=== PATIENT | female | born 1965 | race Caucasian/White ===

== ENCOUNTER 2018-07-29 12:25 | Inpatient (IN) ==
--- NOTE | 2018-07-29 13:57 | ED ---
HPI General Chief complaint: Fever Stated complaint: fever Time Seen by Provider: 07/29/18 13:38 History of Present Illness HPI narrative: 53-year-old female presents to the emergency department for evaluation of fever and right arm pain. The patient states that 2 months ago she sustained a cat bite to her right hand second finger distal tip. States that she was seen same day at [facility] and treated with oral antibiotics, she is unsure which antibiotic, states that she took all except the last 2 days. States that the wound on the distal tip of her finger took about 1 month to heal completely. States that one month ago she started having a wound to the ulnar aspect of her left hand at the base of her little finger. States that this became swollen and had purulence that drained from it, states it has improved since then however has not resolved. States that she has had pain and mild swelling in the right axilla for the past 2 weeks. States that today when she got up she is having pain radiating from her right hand up her arm into her axilla. States that she also notices she has some red streaking running up her arm today. Patient states that she has had fevers daily for the past 10 days. States that her fevers have ranged from 102 F to 104 F. States that her fevers have mostly been at night. States she did have one last night that was 103.9 F at 2 AM and she took an Deja[place] cold and flu. She states that she has also had flulike symptoms over the past 7-10 days with slight cough, nausea, vomiting. States she was seen at an urgent care last week and had blood work which was unremarkable with the exception of a TSH of 16. Denies , she is status post tubal ligation. Patient does not have a PCP. No other complaints. Related Data Home Medications Medication Instructions Recorded Confirmed No Known Home Medications 07/29/18 07/29/18 Allergies Allergy/AdvReac Type Severity Reaction Status Date / Time Penicillins Allergy Unknown Rash Verified 07/29/18 13:54 Review of Systems ROS: all other systems reviewed are negative [facility] Medical History Medical History Medical history unknown (Acute) Surgical History Surgical History History of tubal ligation (Acute) Social History Social History Substance History: No History of Abuse Second Hand Smoke Exposure: Yes Smoking Status: Light tobacco smoker Tobacco Type: Cigarettes How Often Do You Have a Drink Containing Alcohol: 2 to 4 times a month Recent Travel in [facility] within the Last 8 Weeks: No Recent Out of Country Travel within the Last 8 Weeks: No Exam Narrative Exam Narrative: GENERAL: Well-nourished and well-developed pleasant patient in no acute distress who is nontoxic appearing. SKIN: Warm and dry. HEAD: Normocephalic and atraumatic. EYES: No injection, drainage, or hyphema noted. PERRLA. EOMI. ENT: No nasal drainage noted. Oropharynx is clear and the TMs are normal with good landmarks. NECK: Supple and the trachea is midline. CARDIOVASCULAR: Regular rate and rhythm. RESPIRATORY: Breath sounds are equal bilaterally with no accessory muscle use, wheezing, rhonchi, or crackles. GASTROINTESTINAL: Abdomen is soft, non-tender, and nondistended. MUSCULOSKELETAL: There is a 2 cm scaling healing wound to ulnar right hand, no fluctuance, no discharge or drainage. There is lymphangitis extending from the right forearm to right upper arm. Patient has axillary lymphadenopathy and tenderness. No obvious deformities, swelling, cyanosis, or ecchymosis is present throughout the upper and lower extremities. Patient has full range of motion without any signs of neurovascular compromise. Distal pulses are 2+ throughout. NEUROLOGICAL: Awake, alert, and oriented. Normal speech and gait. Cranial nerves are grossly intact. Course Initial Documented Vital Signs Temperature 98.0 F 07/29/18 12:29 Pulse Rate 95 H 07/29/18 12:29 Respiratory Rate 18 07/29/18 12:29 Blood Pressure 127/72 07/29/18 12:29 Pulse Oximetry 99 07/29/18 12:29 Last Documented Vital Signs Temperature 99.4 F 07/29/18 16:45 Pulse Rate 100 H 07/29/18 16:45 Respiratory Rate 17 07/29/18 16:45 Blood Pressure 138/88 07/29/18 16:45 Pulse Oximetry 100 07/29/18 16:45 Medical Decision Making MDM Narrative Medical decision making narrative: 53-year-old female presents to the emergency department for evaluation of fever and right arm pain. Patient is afebrile here in the emergency department. She is slightly tachycardic with a heart rate of 95 bpm. Otherwise vital signs within normal limits. On physical examination the patient has a wound to her right ulnar hand and lymphangitis of the right arm. IV access is obtained, labs of been drawn and sent. Patient is placed on cardiac telemetry and pulse oximetry monitoring. Patient is administered IV fluids, 1 g vancomycin IV and clindamycin 600 mg IV. CBC shows mild anemia but is otherwise unremarkable. Sed rate is significantly elevated at 140. CRP is elevated to 18. Lactic acid is slightly elevated at 2.1. CMP shows hypokalemia with potassium of 3.2, otherwise unremarkable for any acute findings. TSH is elevated at 7.910. Urinalysis shows small occult blood but is otherwise unremarkable. X-ray of the right hand shows soft tissue swelling but is otherwise unremarkable. Chest x-ray shows left lower lobe subsegmental atelectasis although minimal infiltrate cannot be excluded. Swab is negative. Patient has been administered vancomycin and clindamycin IV for cellulitis and lymphangitis. Since cat scratch disease is also in the differential patient also given Zithromax 500 mg IV. Chest x-ray showing pneumonia, covered with IV antibiotics previously listed. Patient will be admitted for IV antibiotics and to follow blood cultures. Dr. Urbano [place] agrees to admit to his service. Medical Screen Exam Complete: Yes Emergency Medical Condition: Yes Differential Diagnosis Differential Diagnosis: Sepsis versus bacteremia versus influenza versus cellulitis versus cat scratch disease Lab Data Result diagrams: 07/29/18 14:25 07/29/18 14:25 Lab Results 07/29/18 07/29/18 07/29/18 Range/Units 14:25 14:25 14:25 WBC 6.4 (4.0-11.0) th/mm3 RBC 3.73 L (4.00-5.30) mil/mm3 Hgb 11.1 L (11.6-15.3) gm/dL Hct 32.1 L (35.0-46.0) % MCV 86.1 (80.0-100.0) fL MCH 29.8 (27.0-34.0) pg MCHC 34.7 (32.0-36.0) % RDW 14.3 (11.6-17.2) % Plt Count 377 (150-450) th/mm3 MPV 8.3 (7.0-11.0) fL Prelim Diff (Auto) Slide review pending Neut % (Auto) 68.6 (16.0-70.0) % Lymph % (Auto) 20.1 (9.0-44.0) % [place] % (Auto) 9.5 H (0.0-8.0) % Eos % (Auto) 1.5 (0.0-4.0) % Baso % (Auto) 0.3 (0.0-2.0) % Neut # (Auto) 4.4 (1.8-7.7) th/mm3 Lymph # (Auto) 1.3 (1.0-4.8) th/mm3 [place] # (Auto) 0.6 (0.0-0.9) th/mm3 Eos # (Auto) 0.1 (0.0-0.4) th/mm3 Baso # (Auto) 0.0 (0.0-0.2) th/mm3 WBC Differential . Diff Scan Auto diff confirmed Differential Comment . Platelet Estimate Normal (Normal) Platelet Morphology Normal (Normal) ESR (0-30) mm/hr Sodium 136 (136-145) meq/L Potassium 3.2 L (3.5-5.1) meq/L Chloride 97 L (98-107) meq/L Carbon Dioxide 32.8 H (21.0-32.0) meq/L Anion Gap 6 (5-15) meq/L BUN 5 L (7-18) mg/dL Creatinine 0.77 (0.50-1.00) mg/dL Estimated GFR 79 L (>89) mL/min Random Glucose 93 (74-106) mg/dL Lactic Acid 2.1 H (0.4-2.0) mmol/L Calcium 8.3 L (8.5-10.1) mg/dL Magnesium 2.2 (1.5-2.5) mg/dL Total Bilirubin 0.3 (0.2-1.0) mg/dL AST 27 (15-37) U/L ALT 34 (10-53) U/L Alkaline Phosphatase 200 H (45-117) U/L C-Reactive Protein 18.00 H (0.00-0.30) mg/dL Total Protein 8.9 H (6.4-8.2) g/dL Albumin 2.4 L (3.4-5.0) g/dL Lipase 182 (73-393) U/L TSH 7.910 H (0.358-3.740) uIU/mL Urine Color (Yellw/Straw) Urine Clarity (Clear) Urine pH (5.0-8.5) Ur Specific [place] (1.002-1.035) Urine Protein (Neg-Trace) mg/dL Urine Glucose (UA) (Negative) mg/dL Urine Ketones (Negative) mg/dL Urine Occult Blood (Negative) Urine Nitrate (Negative) Urine Bilirubin (Negative) Urine Urobilinogen (Less than 2) mg/dL Ur Leukocyte Esterase (Negative) Urine WBC (0-5) /hpf Micro UA Comment Ur Microscopic Review Urine Culture Comments 07/29/18 07/29/18 Range/Units 14:25 14:39 WBC (4.0-11.0) th/mm3 RBC (4.00-5.30) mil/mm3 Hgb (11.6-15.3) gm/dL Hct (35.0-46.0) % MCV (80.0-100.0) fL MCH (27.0-34.0) pg MCHC (32.0-36.0) % RDW (11.6-17.2) % Plt Count (150-450) th/mm3 MPV (7.0-11.0) fL Prelim Diff (Auto) Neut % (Auto) (16.0-70.0) % Lymph % (Auto) (9.0-44.0) % [place] % (Auto) (0.0-8.0) % Eos % (Auto) (0.0-4.0) % Baso % (Auto) (0.0-2.0) % Neut # (Auto) (1.8-7.7) th/mm3 Lymph # (Auto) (1.0-4.8) th/mm3 [place] # (Auto) (0.0-0.9) th/mm3 Eos # (Auto) (0.0-0.4) th/mm3 Baso # (Auto) (0.0-0.2) th/mm3 WBC Differential Diff Scan Differential Comment Platelet Estimate (Normal) Platelet Morphology (Normal) ESR Greater than 140 H (0-30) mm/hr Sodium (136-145) meq/L Potassium (3.5-5.1) meq/L Chloride (98-107) meq/L Carbon Dioxide (21.0-32.0) meq/L Anion Gap (5-15) meq/L BUN (7-18) mg/dL Creatinine (0.50-1.00) mg/dL Estimated GFR (>89) mL/min Random Glucose (74-106) mg/dL Lactic Acid (0.4-2.0) mmol/L Calcium (8.5-10.1) mg/dL Magnesium (1.5-2.5) mg/dL Total Bilirubin (0.2-1.0) mg/dL AST (15-37) U/L ALT (10-53) U/L Alkaline Phosphatase (45-117) U/L C-Reactive Protein (0.00-0.30) mg/dL Total Protein (6.4-8.2) g/dL Albumin (3.4-5.0) g/dL Lipase (73-393) U/L TSH (0.358-3.740) uIU/mL Urine Color Straw (Yellw/Straw) Urine Clarity Clear (Clear) Urine pH 7.0 (5.0-8.5) Ur Specific [place] 1.001 L (1.002-1.035) Urine Protein Negative (Neg-Trace) mg/dL Urine Glucose (UA) Negative (Negative) mg/dL Urine Ketones Negative (Negative) mg/dL Urine Occult Blood Small H (Negative) Urine Nitrate Negative (Negative) Urine Bilirubin Negative (Negative) Urine Urobilinogen Less than 2 (Less than 2) mg/dL Ur Leukocyte Esterase Negative (Negative) Urine WBC Less than 1 (0-5) /hpf Micro UA Comment Culture not ind Ur Microscopic Review Not Reportable Urine Culture Comments Culture not ind Imaging Data Radiologist's impression: Chest X-Ray 07/29/18 13:55 CONCLUSION: Minimal linear density left lower lobe likely subsegmental atelectasis although minimal infiltrate cannot be excluded. Hand X-Ray 07/29/18 14:04 CONCLUSION: Soft tissue swelling without evidence of radiopaque foreign body. Discharge Plan Discharge Disposition Patient Disposition: 30 Still Patient Discharge Details Diagnosis: Infection of hand, Community acquired pneumonia, Acute lymphangitis Physicians Team ED Provider: Angus Carmona ED Midlevel Provider: Jennifer Baird Primary Care Provider: Primary Care Yaz King Rxs /Orders / Referrals /Forms Prescriptions: No Action No Known Home Medications RF: 0 Status ED Status: With Doctor
[2018-07-29] MEDS ORDERED: Sod Chloride 0.9% Inj 1,000 ML IV.SIG SCH (14:00)
[2018-07-29] MEDS ORDERED: Clindamycin 600 mg/NS Premix 600 MG/50 ML PIGGYBACK IV.SIG ONE (14:02)
[2018-07-29] MEDS ORDERED: Vancomycin Inj 1,000 MG in Sodium Chlor 0.9% Inj 250 ML IV.SIG ONE (14:02)
--- NOTE | 2018-07-29 14:28 | XR ---
EXAM DATE: 07/29/2018 2:21 PM EST AGE/SEX: 53 years / Female INDICATIONS: Foreign body. Patient was bite by a cat 2 months ago. Continued pain. CLINICAL DATA: This is the patient's initial encounter. Patient reports that signs and symptoms have been present for 2 months and indicates a pain score of 8/10. MEDICAL/SURGICAL HISTORY: None. None. COMPARISON: No prior exams available for comparison. FINDINGS: Bony structures are intact and in normal alignment. Osseous density is normal. Soft tissue swelling i s seen along the lateral aspect of the right hand adjacent to the fifth metacarpal.. No radiopaque f oreign bodies seen. CONCLUSION: Soft tissue swelling without evidence of radiopaque foreign body. Electronically signed by: Gil Alcantara MD 07/29/2018 2:26 PM EST
--- NOTE | 2018-07-29 14:31 | XR ---
EXAM DATE: 07/29/2018 2:09 PM EST AGE/SEX: 53 years / Female INDICATIONS: Fever. CLINICAL DATA: This is the patient's initial encounter. Patient reports that signs and symptoms have been present for 2 weeks and indicates a pain score of 0/10. MEDICAL/SURGICAL HISTORY: None. None. COMPARISON: No prior exams available for comparison. FINDINGS: A single AP view of the chest demonstrates minimal linear density left lower lobe without evidence of mass, infiltrate or effusion. The cardiomediastinal contours are unremarkable. Osseous structures are intact. CONCLUSION: Minimal linear density left lower lobe likely subsegmental atelectasis although minimal infiltrate ca nnot be excluded. Electronically signed by: Aydin Burton MD 07/29/2018 2:30 PM EST
[2018-07-29 14:59] LABS: Baso % (Auto) 0.3 % (0.0-2.0); Eos # (Auto) 0.1 th/mm3 (0.0-0.4); Eos % (Auto) 1.5 % (0.0-4.0); Hematocrit 32.1 % (35.0-46.0); Hemoglobin 11.1 gm/dL (11.6-15.3); Lymph # (Auto) 1.3 th/mm3 (1.0-4.8); Lymph % (Auto) 20.1 % (9.0-44.0); Mean Corpuscular HGB Conc 34.7 % (32.0-36.0); Mean Corpuscular Hemoglobin 29.8 pg (27.0-34.0); Mean Corpuscular Volume 86.1 fL (80.0-100.0); Mean Platelet Volume 8.3 fL (7.0-11.0); Mono # (Auto) 0.6 th/mm3 (0.0-0.9); Mono % (Auto) 9.5 % (0.0-8.0); Neut # (Auto) 4.4 th/mm3 (1.8-7.7); Neut % (Auto) 68.6 % (16.0-70.0); Platelet Count 377 th/mm3 (150-450); Red Blood Count 3.73 mil/mm3 (4.00-5.30); Red Cell Distribution Width 14.3 % (11.6-17.2); White Blood Count 6.4 th/mm3 (4.0-11.0)
[2018-07-29 15:17] LABS: Alanine Aminotransferase 34 U/L (10-53); Albumin 2.4 g/dL (3.4-5.0); Anion Gap 6 meq/L (5-15); Aspartate Aminotransferase 27 U/L (15-37); Blood Urea Nitrogen 5 mg/dL (7-18); Calcium 8.3 mg/dL (8.5-10.1); Carbon Dioxide 32.8 meq/L (21.0-32.0); Chloride 97 meq/L (98-107); Glomerular Filtration Rate 79 mL/min (>89); Glucose,Random 93 mg/dL (74-106); Lipase 182 U/L (73-393); Magnesium 2.2 mg/dL (1.5-2.5); Potassium 3.2 meq/L (3.5-5.1); Sodium 136 meq/L (136-145)
[2018-07-29] MEDS ORDERED: Azithromycin Inj 500 MG in Sodium Chlor 0.9% Inj 250 ML IV.SIG ONE (15:23)
[2018-07-29 15:25] LABS: Alkaline Phosphatase 200 U/L (45-117); Total Protein 8.9 g/dL (6.4-8.2)
[2018-07-29 15:39] LABS: Bilirubin,Urine Negative (Negative); Clarity,Urine Clear (Clear); Color,Urine Straw (Yellw/Straw); Glucose,Urine (UA) Negative (Negative); Leukocyte Esterase,Urine Negative (Negative); Nitrite,Urine Negative (Negative); Specific Gravity,Urine 1.001 (1.002-1.035)
[2018-07-29 15:48] LABS: Platelet Estimate Normal (Normal); Platelet Morphology Normal (Normal)
[2018-07-29] MEDS ORDERED: Bisacodyl 10 MG Supp RECTAL PRN (16:10)
[2018-07-29] MEDS ORDERED: Vancomycin Consult Pharmacy OTHER PRN (16:14)
--- NOTE | 2018-07-29 16:14 | P.HP ---
History of Present Illness Primary Care Physician: No Primary Care Physician Chief Complaint: Fever History of Present Illness: This is a pleasant 53 y/o Female who came to Emergency Room for evaluation of fever and right arm pain. The patient states that 2 months ago she sustained a cat bite to her right hand second finger distal tip. States that she was seen same day at [facility] and treated with oral antibiotics, she is unsure which antibiotic, states that she took all except the last 2 days. States that the wound on the distal tip of her finger took about 1 month to heal completely. States that one month ago she started having a wound to the ulnar aspect of her left hand at the base of her little finger. States that this became swollen and had purulence that drained from it, states it has improved since then however has not resolved. States that she has had pain and mild swelling in the right axilla for the past 2 weeks. States that today when she got up she is having pain radiating from her right hand up her arm into her axilla. States that she also notices she has some red streaking running up her arm today. Patient states that she has had fevers daily for the past 10 days. States that her fevers have ranged from 102 F to 104 F. States that her fevers have mostly been at night. States she did have one last night that was 103.9 F at 2 AM and she took an Deja-[place] cold and flu. She states that she has also had flulike symptoms over the past 7-10 days with slight cough, nausea, vomiting. States she was seen at an urgent care last week and had blood work which was unremarkable with the exception of a TSH of 16. Denies , she is status post tubal ligation. stable in he bedroom in Emergency room, no nausea, vomit or diarrhea. Review of Systems All other systems reviewed negative except as stated in HPI PMFSH - History History Provided By: Patient - Medical History Medical History: Medical History (Last Updated 07/29/18 @ 17:11 by Sundeep Pate MD) Hypothyroidism - Surgical History Surgical History: Surgical History (Last Updated 07/29/18 @ 14:20 by Vamsi Diego) History of tubal ligation - Family History Family History: Family History (Last Updated 07/29/18 @ 17:11 by Sundeep Pate MD) Father Family history of hypertension - Tobacco History Second Hand Smoke Exposure: Yes Tobacco Use In Past 30 Days: Yes Smoking Status: Light tobacco smoker Tobacco Type: Cigarettes - Alcohol History How Often Do You Have a Drink Containing Alcohol: 2 to 4 times a month - Substance Use History Substance History: No History of Abuse - Travel History Recent Travel in the [place] Within the Last 8 Weeks: No Recent Travel Out of the Country Within the Last 8 Weeks: No - Immunization History Tetanus Immunization: >5 Years Medications and Allergies Active Medications: Active Medications Azithromycin 500 mg/ Sodium (Chloride) 250 mls @ 250 mls/hr IV.SIG ONCE ONE Stop: 07/29/18 16:22 Last Admin: 07/29/18 15:47 Dose: 250 mls/hr Allergies Allergy/AdvReac Type Severity Reaction Status Date / Time Penicillins Allergy Unknown Rash Verified 07/29/18 13:54 Home Medications Medication Instructions Recorded Confirmed Type No Known Home Medications 07/29/18 07/29/18 History Exam Vital signs: Vital Signs 07/29/18 12:29 07/29/18 14:25 07/29/18 14:26 Temperature 98.0 F Pulse Rate 95 H 95 H 96 H Respiratory Rate 18 18 Blood Pressure 127/72 130/72 Pulse Oximetry 99 100 99 Intake & Output 07/28/18 07/29/18 07/29/18 18:59 06:59 18:59 Intake Total 50 / 50 Balance 50 / 50 Weight 73.482 kg Intake: IV 50 / 50 Cleocin 600 mg/NS Premix 600 mg 50 / 50 In 50 ml @ 100 mls/hr IV.SIG ONCE ONE Rx#:[id number] Narrative: GENERAL: Well-nourished and well-developed pleasant patient in no acute distress who is nontoxic appearing. SKIN: Warm and dry. HEAD: Normocephalic and atraumatic. EYES: No injection, drainage, or hyphema noted. PERRLA. EOMI. ENT: No nasal drainage noted. Oropharynx is clear and the TMs are normal with good landmarks. NECK: Supple and the trachea is midline. CARDIOVASCULAR: Regular rate and rhythm. RESPIRATORY: Breath sounds are equal bilaterally with no accessory muscle use, wheezing, rhonchi, or crackles. GASTROINTESTINAL: Abdomen is soft, non-tender, and nondistended. MUSCULOSKELETAL: There is a 2 cm scaling healing wound to ulnar right hand, no fluctuance, no discharge or drainage. There is lymphangitis extending from the right forearm to right upper arm. Patient has axillary lymphadenopathy and tenderness. No obvious deformities, swelling, cyanosis, or ecchymosis is present throughout the upper and lower extremities. Patient has full range of motion without any signs of neurovascular compromise. Distal pulses are 2+ throughout. NEUROLOGICAL: Awake, alert, and oriented. Normal speech and gait. Cranial nerves are grossly intact. Results - Labs CBC & Chem 7: 07/29/18 14:25 07/29/18 14:25 Labs: Laboratory Results - last 24 hr 07/29/18 07/29/18 07/29/18 14:25 14:25 14:25 WBC 6.4 RBC 3.73 L Hgb 11.1 L Hct 32.1 L MCV 86.1 MCH 29.8 MCHC 34.7 RDW 14.3 Plt Count 377 MPV 8.3 Prelim Diff (Auto) Slide review pending Neut % (Auto) 68.6 Lymph % (Auto) 20.1 [place] % (Auto) 9.5 H Eos % (Auto) 1.5 Baso % (Auto) 0.3 Neut # (Auto) 4.4 Lymph # (Auto) 1.3 [place] # (Auto) 0.6 Eos # (Auto) 0.1 Baso # (Auto) 0.0 WBC Differential . Diff Scan Auto diff confirmed Differential Comment . Platelet Estimate Normal Platelet Morphology Normal ESR Sodium 136 Potassium 3.2 L Chloride 97 L Carbon Dioxide 32.8 H Anion Gap 6 BUN 5 L Creatinine 0.77 Estimated GFR 79 L Random Glucose 93 Lactic Acid 2.1 H Calcium 8.3 L Magnesium 2.2 Total Bilirubin 0.3 AST 27 ALT 34 Alkaline Phosphatase 200 H C-Reactive Protein 18.00 H Total Protein 8.9 H Albumin 2.4 L Lipase 182 TSH 7.910 H Urine Color Urine Clarity Urine pH Ur Specific [place] Urine Protein Urine Glucose (UA) Urine Ketones Urine Occult Blood Urine Nitrate Urine Bilirubin Urine Urobilinogen Ur Leukocyte Esterase Urine WBC Micro UA Comment Ur Microscopic Review Urine Culture Comments 07/29/18 07/29/18 14:25 14:39 WBC RBC Hgb Hct MCV MCH MCHC RDW Plt Count MPV Prelim Diff (Auto) Neut % (Auto) Lymph % (Auto) [place] % (Auto) Eos % (Auto) Baso % (Auto) Neut # (Auto) Lymph # (Auto) [place] # (Auto) Eos # (Auto) Baso # (Auto) WBC Differential Diff Scan Differential Comment Platelet Estimate Platelet Morphology ESR Greater than 140 H Sodium Potassium Chloride Carbon Dioxide Anion Gap BUN Creatinine Estimated GFR Random Glucose Lactic Acid Calcium Magnesium Total Bilirubin AST ALT Alkaline Phosphatase C-Reactive Protein Total Protein Albumin Lipase TSH Urine Color Straw Urine Clarity Clear Urine pH 7.0 Ur Specific [place] 1.001 L Urine Protein Negative Urine Glucose (UA) Negative Urine Ketones Negative Urine Occult Blood Small H Urine Nitrate Negative Urine Bilirubin Negative Urine Urobilinogen Less than 2 Ur Leukocyte Esterase Negative Urine WBC Less than 1 Micro UA Comment Culture not ind Ur Microscopic Review Not Reportable Urine Culture Comments Culture not ind - Imaging Impressions Chest X-Ray 07/29/18 13:55 CONCLUSION: Minimal linear density left lower lobe likely subsegmental atelectasis although minimal infiltrate cannot be excluded. Hand X-Ray 07/29/18 14:04 CONCLUSION: Soft tissue swelling without evidence of radiopaque foreign body. Caprini VTE Risk Assessment Caprini VTE Risk Assessment: No/Low Risk (score <= 1) Caprini Risk Assessment Model: Point Value = 1 Point Value = 2 Point Value = 3 Point Value = 5 Age 41-60 Minor surgery BMI > 25 kg/m2 Swollen legs Varicose veins or History of unexplained or recurrent spontaneous Oral contraceptives or hormone replacement Sepsis (< 1 month) Serious lung disease, including pneumonia (< 1 month) Abnormal pulmonary function Acute myocardial infarction Congestive heart failure (< 1 month) History of inflammatory bowel disease Medical patient at bed rest Age 61-74 Arthroscopic surgery Major open surgery (> 45 min) Laparoscopic surgery (> 45 min) Malignancy Confined to bed (> 72 hours) Immobilizing plaster cast Central venous access Age >= 75 History of VTE Family history of VTE Factor V Leiden Prothrombin [id number] Lupus anticoagulant Anticardiolipin antibodies Elevated serum homocysteine Heparin-induced thrombocytopenia Other congenital or acquired thrombophilia Stroke (< 1 month) Elective arthroplasty Hip, pelvis, or leg fracture Acute spinal cord injury (< 1 month) Prophylaxis Regimen: Total Risk Factor Score Risk Level Prophylaxis Regimen 0-1 Low Early ambulation 2 Moderate Order ONE of the following: *Sequential Compression Device (SCD) *Heparin 5000 units SQ BID 3-4 Higher Order ONE of the following medications: *Heparin 5000 units SQ TID *Enoxaparin/Lovenox 40 mg SQ daily (WT < 150 kg, CrCl > 30 mL/min) *Enoxaparin/Lovenox 30 mg SQ daily (WT < 150 kg, CrCl > 10-29 mL/min) *Enoxaparin/Lovenox 30 mg SQ BID (WT < 150 kg, CrCl > 30 mL/min) AND/OR *Sequential Compression Device (SCD) 5 or more Highest Order ONE of the following medications: *Heparin 5000 units SQ TID (Preferred with Epidurals) *Enoxaparin/Lovenox 40 mg SQ daily (WT < 150 kg, CrCl > 30 mL/min) *Enoxaparin/Lovenox 30 mg SQ daily (WT < 150 kg, CrCl > 10-29 mL/min) *Enoxaparin/Lovenox 30 mg SQ BID (WT < 150 kg, CrCl > 30 mL/min) AND *Sequential Compression Device (SCD) Assessment and Plan - Plan 1. Left hand Cellulitis status post Cellulitis and Lymphangitis, Sed rate elevated 140, CRP elevated 18 was started on IV fluids, her Lactic acid mildly elevated 2.1, has Hypokalemia replaced and following started on Vancomycin and Clindamycin 600 mg every 8 hours, discussed with ER physician Doctor Carmona and because the patient started with Cat bite probable Cat scratch disease is a possibility was started on Azithromycin 500 mg IV daily. X-ray of the right hand shows soft tissue swelling but is otherwise unremarkable. 2. Hypothyroidism was given Desiccated thyroid extract by her PCP, I don't have the dose will start Levothyroxine 50 mcg daily 3. CAP CXR showed left lower lobe subsegmental atelectasis. will continue present care. will add Bronchodilator, Mucolytic and incentive spirometry. 4. Hypokalemia replaced and following. 5. Tobacco dependence strongly recommended to stop smoking. DVT prophylaxis with Lovenox. Code Status: Full code. Discussed Condition With: Emergency Physician doctor Angus Carmona. Discharge Planning: Expected in one to two days.
[2018-07-29] MEDS: Acetaminophen 325 MG Tablet PO PRN (17:11)
[2018-07-29] MEDS: Levothyroxine 50 MCG Tablet PO SCH (18:03)
[2018-07-29] MEDS: Sod Chloride 0.9% Inj 1,000 ML IV.CONT SCH (18:16)
[2018-07-29] MEDS: Enoxaparin Inj 40 MG/0.4 ML Syringe SQ SCH (18:16)
--- NOTE | 2018-07-29 19:08 | ECG ---
Date Performed: 07/29/2018 Time Performed: 14:24:17 PTAGE: 53 years EKG: Sinus rhythm NORMAL ECG NO PREVIOUS TRACING DOCTOR: Km Osuna Interpretating Date/Time 07/29/2018 19:07:23
[2018-07-29] MEDS: guaiFENesin 600 MG ER Tablet PO SCH (21:13)
[2018-07-29] MEDS: Clindamycin 600 mg/NS Premix 600 MG/50 ML PIGGYBACK IV.SIG SCH (23:26)
[2018-07-30] MEDS ORDERED: Vancomycin Inj 1,000 MG in Sodium Chlor 0.9% Inj 250 ML IV.SIG SCH (05:00)
[2018-07-30] MEDS: Sod Chloride 0.9% Inj 1,000 ML IV.CONT SCH ×3 (05:11→22:17)
[2018-07-30] MEDS: Levothyroxine 50 MCG Tablet PO SCH (05:16)
[2018-07-30] MEDS: Clindamycin 600 mg/NS Premix 600 MG/50 ML PIGGYBACK IV.SIG SCH ×3 (06:24→22:12)
[2018-07-30 07:58] LABS: Baso % (Auto) 0.6 % (0.0-2.0); Eos # (Auto) 0.1 th/mm3 (0.0-0.4); Eos % (Auto) 1.2 % (0.0-4.0); Hematocrit 29.9 % (35.0-46.0); Hemoglobin 10.2 gm/dL (11.6-15.3); Lymph # (Auto) 1.6 th/mm3 (1.0-4.8); Lymph % (Auto) 24.5 % (9.0-44.0); Mean Corpuscular HGB Conc 34.3 % (32.0-36.0); Mean Corpuscular Hemoglobin 29.1 pg (27.0-34.0); Mean Corpuscular Volume 84.8 fL (80.0-100.0); Mean Platelet Volume 8.4 fL (7.0-11.0); Mono # (Auto) 0.6 th/mm3 (0.0-0.9); Mono % (Auto) 9.3 % (0.0-8.0); Neut # (Auto) 4.1 th/mm3 (1.8-7.7); Neut % (Auto) 64.4 % (16.0-70.0); Platelet Count 363 th/mm3 (150-450); Red Blood Count 3.53 mil/mm3 (4.00-5.30); Red Cell Distribution Width 14.1 % (11.6-17.2); White Blood Count 6.4 th/mm3 (4.0-11.0)
[2018-07-30] MEDS: guaiFENesin 600 MG ER Tablet PO SCH ×2 (08:30→22:14)
--- NOTE | 2018-07-30 13:16 | P.CONID ---
History of Present Illness Service: Infectious disease Consult date: 07/30/18 Requesting Physician: Eliezer Baird Reason for Consult: Evaluate patient with infection right upper extremity and fevers Primary Care Provider: No Primary Care Physician Chief Complaint: Fever History of Present Illness: Patient seen and examined. Records reviewed. Patient is a 53-year-old female, presented to the hospital for further evaluation of red streaks going up her right upper extremity. Patient stated she had a cat bite in her right index finger about 2 months ago. It was a young kitten and they foster pets. She apparently developed an infection on that finger. She went to [facility], and she was given Augmentin and she finished about 8 days of the treatment. The right index finger got better. About a month ago patient developed problem on the lateral aspect of her right hand and its towards the fifth MCP joint. It apparently became red and swollen and there was a white area that she had noticed and she tried draining it but nothing came out. She thought it might have been from the bottle washer machine holes that she was using. She was not sure if it was at all related to the cat bite that she had on her other finger. She did not seek any medical help, and it eventually got better. About 12 days ago patient started developing fevers and chills. She went to a walk-in clinic and she was told that it might just be the flu. She also started experiencing some pain and discomfort in her right armpit. The day prior to admission she noted red streaks going up her forearm and because of her other symptoms she decided to go to the hospital for further evaluation and treatment. During her visit in the walk-in clinic she had some blood work done and she was told that her TSH was elevated. She was apparently started on [place] Thyroid. She has not had any respiratory symptoms. Denies any sore throat or any swollen gland. Denies any joint pains. She has not had any skin rash. No nausea or vomiting. She has been constipated. Her p.o. intake has not been great. She denies any urinary complaints. Patient has 4 children at home who are in the teens to the early 20s and none of them are sick. The kitten that bit her apparently about 3 days after she sustained a bite. Since admission she has not had any fever. Highest temperature has been about 99+. Chest x-ray showing some left lower lobe atelectasis. X-ray of the hand shows some soft tissue swelling but no foreign body seen. Patient has received a azithromycin, vancomycin and clindamycin. She was noted to have some lymphangitic streaks in her right upper extremity, and according to the patient that has improved some. She complains of significant tenderness in her right armpit. Infectious disease consultation has been requested to assist with evaluation and treatment of patient with fevers. Review of Systems Constitutional: Reports chills, Reports fever(s), Reports night sweats, Reports weakness, Denies headache(s) Eyes: Reports blurry vision, Denies discharge, Denies dry eyes, Denies floaters , Denies pain Ears, Nose, Mouth, and Throat: Denies difficulty swallowing, Denies dizziness, Denies ear pain, Denies facial pain, Denies mouth pain, Denies nasal congestion , Denies nasal discharge, Denies pain with swallowing, Denies sore throat Cardiovascular: Denies chest pain, Denies shortness of breath Respiratory: Denies chest congestion, Denies cough, Denies shortness of breath Gastrointestinal: Reports constipation, Denies abdominal pain, Denies incontinent of stools, Denies loose stools, Denies nausea, Denies pain with swallowing, Denies vomiting Genitourinary: Denies difficulty urinating, Denies painful urination Musculoskeletal: Reports muscle weakness, Denies joint pain, Denies joint swelling Skin/Breast: Reports redness, Denies rash, Denies wounds Neurologic: Denies headache(s), Denies loss of vision PMFSH - History History Provided By: Patient - Medical History Medical History: Medical History (Last Reviewed 07/30/18 @ 13:52 by Naya Trevino MD) Hypothyroidism - Surgical History Surgical History: Surgical History (Last Reviewed 07/30/18 @ 13:52 by Naya Trevino MD) History of tubal ligation - Family History Family History: Family History (Last Reviewed 07/30/18 @ 13:52 by Naya Trevino MD) Father Family history of hypertension - Tobacco History Second Hand Smoke Exposure: Yes Tobacco Use In Past 30 Days: Yes Smoking Status: Light tobacco smoker Tobacco Type: Cigarettes - Alcohol History How Often Do You Have a Drink Containing Alcohol: 2 to 4 times a month - Substance Use History Substance History: No History of Abuse - Travel History Recent Travel in the [facility] [place] Within the Last 8 Weeks: No Recent Travel Out of the Country Within the Last 8 Weeks: No - Immunization History Tetanus Immunization: >5 Years Medications and Allergies Active Medications: Active Medications Acetaminophen (Tylenol) 650 mg PO Q4H PRN PRN Reason: Temp > 100.4 Last Admin: 07/29/18 17:11 Dose: 650 mg Al Hydroxide/Mg Hydroxide (Milk Of Magnesia Liq) 30 ml PO Q12H PRN PRN Reason: Mild Constipation Last Admin: 07/30/18 08:38 Dose: 30 ml Albuterol (Duoneb Neb (Prn)) 1 ampul NEB Q4HR NEB PRN PRN Reason: SHORTNESS OF BREATH Bisacodyl (Dulcolax Supp) 10 mg RECTAL DAILY PRN PRN Reason: SEVERE CONSITIPATION Enoxaparin Sodium (Lovenox Inj) 40 mg SQ Q24H [facility] Last Admin: 07/29/18 18:16 Dose: 40 mg Guaifenesin (Mucinex Er) 600 mg PO BID [facility] Last Admin: 07/30/18 08:30 Dose: 600 mg Sodium Chloride (Ns Inj) 1,000 mls @ 100 mls/hr IV.CONT .Q10H [facility] Last Admin: 07/30/18 05:11 Dose: 100 mls/hr Azithromycin 500 mg/ Sodium (Chloride) 250 mls @ 250 mls/hr IV.SIG Q24H [facility] Clindamycin/Sodium Chloride (Cleocin 600 Mg/Ns Premix) 600 mg in 50 mls @ 100 mls/hr IV.SIG Q8H [facility] Last Infusion: 07/30/18 06:54 Dose: Infused Vancomycin HCl 1,000 mg/ (Sodium Chloride) 250 mls @ 250 mls/hr IV.SIG Q12H [facility] Last Infusion: 07/30/18 06:13 Dose: Infused Lactulose (Lactulose Liq) 30 ml PO DAILY PRN PRN Reason: SEVERE CONSITIPATION Levothyroxine Sodium (Synthroid) 50 mcg PO DAILY@0600 [facility] Last Admin: 07/30/18 05:16 Dose: Not Given Miscellaneous Information ([facility] Ordered Lab Info) 0 each OTHER ONCE ONE Stop: 07/31/18 04:46 Ondansetron HCl (Zofran Inj) 4 mg IV.PUSH Q6H PRN PRN Reason: NAUSEA OR VOMITING Pharmacy Profile Note (Vancomycin Consult Pharmacy) 1 each OTHER UNSCH PRN PRN Reason: Pharmacy to dose Sennosides (Senokot) 17.2 mg PO Q12H PRN PRN Reason: Moderate Constipation Last Admin: 07/29/18 21:21 Dose: 17.2 mg Allergies Allergy/AdvReac Type Severity Reaction Status Date / Time Penicillins Allergy Unknown Rash Verified 07/29/18 13:54 Home Medications Medication Instructions Recorded Confirmed Type No Known Home Medications 07/29/18 07/29/18 History Exam Vital signs: Vital Signs 07/29/18 14:25 07/29/18 14:26 07/29/18 16:45 Temperature 99.4 F Pulse Rate 95 H 96 H 100 H Respiratory Rate 18 17 Blood Pressure 130/72 138/88 Pulse Oximetry 100 99 100 07/29/18 18:32 07/29/18 20:00 07/30/18 00:00 Temperature 99.4 F 98.4 F 99.6 F Pulse Rate 106 H 93 H 93 H Respiratory Rate 20 18 18 Blood Pressure 114/70 116/74 130/83 Pulse Oximetry 96 95 98 07/30/18 04:00 07/30/18 08:00 07/30/18 12:00 Temperature 98.3 F 99.2 F 98.4 F Pulse Rate 62 87 94 H Respiratory Rate 18 20 20 Blood Pressure 140/79 124/76 144/83 H Pulse Oximetry 98 98 96 Intake & Output 07/29/18 07/30/18 07/30/18 18:59 06:59 18:59 Intake Total 2029 1350 / 1350 Balance 2029 1350 / 1350 Weight 73.482 kg 79.4 kg Intake: IV 1550 / 1550 1350 / 1350 NS Inj 1,000 ML @ 100 mls/hr IV 1000 / 1000 .CONT .Q10H [facility] Rx#:[id number] Azithromycin Inj 500 MG In NS 250 / 250 Inj 250 ML @ 250 mls/hr IV.SIG ONCE ONE Rx#:[id number] Cleocin 600 mg/NS Premix 600 mg 50 / 50 100 / 100 In 50 ml @ 100 mls/hr IV.SIG Q8H [facility] Rx#:[id number] NS Inj 1,000 ML @ 1000 mls/hr 1000 / 1000 IV.SIG BOLUS [facility] Rx#:[id number] Vancomycin Inj 1,000 MG In NS 250 / 250 250 / 250 Inj 250 ML @ 250 mls/hr IV.SIG Q12H [facility] Rx#:[id number] Oral 480 / 480 Other: # Voids 1 4 # Bowel Movements 1 Narrative: Physical examination GENERAL: Patient is a well-nourished, well-developed female, awake and alert , not in respiratory distress. She does not look toxic appearing SKIN: Warm and dry. No generalized rash, no ecchymoses and no evidence of embolic lesions. HEAD: Atraumatic. Normocephalic. No temporal wasting, or tenderness. EYES: [place] conjunctiva. No petechia or hemorrhage. Pupils equal, round and reactive to light. Extraocular movements full and intact. No scleral icterus. No injection or drainage. EARS, NOSE AND THROAT: Nose without bleeding or purulent nasal discharge. No sinus tenderness. Mucous membranes pink and moist. No oral lesions noted. No exudate. No oral thrush. NECK: Trachea midline. Supple and not tender, no meningeal signs. No lymphadenopathy CARDIOVASCULAR: Regular rate and rhythm. No murmurs, rubs or gallops heard RESPIRATORY: Clear to auscultation. Breath sounds equal bilaterally. No rales , wheezing or rhonchi ABDOMEN: Soft, non-tender, nondistended. Bowel sounds present and normoactive. No guarding. No rebound. No organomegaly. EXTREMITIES: No clubbing, cyanosis, or edema in both LE. No joint effusion, has good ROM. No calf tenderness. R hand - there is a healed wound on ulnar side of her 5th MCP, light pink color, non tender. There is a tender lymphangitic streak in her forearm. R axilla - there is swelling, ansd tender LN palpated, but no discoloration of skin overlying that tender LN. Well perfused and warm. NEUROLOGICAL: Awake and alert. Cranial nerves grossly intact. Motor grossly within normal limits. PSYCHIATRIC: Normal affect, calm and cooperative. LINE: No evidence of infection Results - Labs CBC & Chem 7: 07/30/18 07:05 07/29/18 14:25 Labs: Laboratory Results - last 24 hr 07/29/18 07/29/18 07/29/18 14:25 14:25 14:25 WBC 6.4 RBC 3.73 L Hgb 11.1 L Hct 32.1 L MCV 86.1 MCH 29.8 MCHC 34.7 RDW 14.3 Plt Count 377 MPV 8.3 Prelim Diff (Auto) Slide review pending Neut % (Auto) 68.6 Lymph % (Auto) 20.1 [place] % (Auto) 9.5 H Eos % (Auto) 1.5 Baso % (Auto) 0.3 Neut # (Auto) 4.4 Lymph # (Auto) 1.3 [place] # (Auto) 0.6 Eos # (Auto) 0.1 Baso # (Auto) 0.0 WBC Differential . Diff Scan Auto diff confirmed Differential Comment . Platelet Estimate Normal Platelet Morphology Normal ESR Sodium 136 Potassium 3.2 L Chloride 97 L Carbon Dioxide 32.8 H Anion Gap 6 BUN 5 L Creatinine 0.77 Estimated GFR 79 L Random Glucose 93 Lactic Acid 2.1 H Calcium 8.3 L Magnesium 2.2 Total Bilirubin 0.3 AST 27 ALT 34 Alkaline Phosphatase 200 H C-Reactive Protein 18.00 H Total Protein 8.9 H Albumin 2.4 L Lipase 182 TSH 7.910 H Urine Color Urine Clarity Urine pH Ur Specific [place] Urine Protein Urine Glucose (UA) Urine Ketones Urine Occult Blood Urine Nitrate Urine Bilirubin Urine Urobilinogen Ur Leukocyte Esterase Urine WBC Micro UA Comment Ur Microscopic Review Urine Culture Comments 07/29/18 07/29/18 07/29/18 14:25 14:39 17:17 WBC RBC Hgb Hct MCV MCH MCHC RDW Plt Count MPV Prelim Diff (Auto) Neut % (Auto) Lymph % (Auto) [place] % (Auto) Eos % (Auto) Baso % (Auto) Neut # (Auto) Lymph # (Auto) [place] # (Auto) Eos # (Auto) Baso # (Auto) WBC Differential Diff Scan Differential Comment Platelet Estimate Platelet Morphology ESR Greater than 140 H Sodium Potassium Chloride Carbon Dioxide Anion Gap BUN Creatinine Estimated GFR Random Glucose Lactic Acid 1.4 Calcium Magnesium Total Bilirubin AST ALT Alkaline Phosphatase C-Reactive Protein Total Protein Albumin Lipase TSH Urine Color Straw Urine Clarity Clear Urine pH 7.0 Ur Specific [place] 1.001 L Urine Protein Negative Urine Glucose (UA) Negative Urine Ketones Negative Urine Occult Blood Small H Urine Nitrate Negative Urine Bilirubin Negative Urine Urobilinogen Less than 2 Ur Leukocyte Esterase Negative Urine WBC Less than 1 Micro UA Comment Culture not ind Ur Microscopic Review Not Reportable Urine Culture Comments Culture not ind 07/30/18 07:05 WBC 6.4 RBC 3.53 L Hgb 10.2 L Hct 29.9 L MCV 84.8 MCH 29.1 MCHC 34.3 RDW 14.1 Plt Count 363 MPV 8.4 Prelim Diff (Auto) Neut % (Auto) 64.4 Lymph % (Auto) 24.5 [place]gle % (Auto) 9.3 H Eos % (Auto) 1.2 Baso % (Auto) 0.6 Neut # (Auto) 4.1 Lymph # (Auto) 1.6 Ogle # (Auto) 0.6 Eos # (Auto) 0.1 Baso # (Auto) 0.0 WBC Differential . Diff Scan Differential Comment Auto diff final Platelet Estimate Platelet Morphology ESR Sodium Potassium Chloride Carbon Dioxide Anion Gap BUN Creatinine Estimated GFR Random Glucose Lactic Acid Calcium Magnesium Total Bilirubin AST ALT Alkaline Phosphatase C-Reactive Protein Total Protein Albumin Lipase TSH Urine Color Urine Clarity Urine pH Ur Specific [place] Urine Protein Urine Glucose (UA) Urine Ketones Urine Occult Blood Urine Nitrate Urine Bilirubin Urine Urobilinogen Ur Leukocyte Esterase Urine WBC Micro UA Comment Ur Microscopic Review Urine Culture Comments - Imaging Impressions Chest X-Ray 07/29/18 13:55 CONCLUSION: Minimal linear density left lower lobe likely subsegmental atelectasis although minimal infiltrate cannot be excluded. Hand X-Ray 07/29/18 14:04 CONCLUSION: Soft tissue swelling without evidence of radiopaque foreign body. Assessment and Plan - Plan Impression Fevers with lymphangitis and possible lymphadenopathy - ?CSD - ?other etiology Recent cat bite to her RIF, no evidence of finger infection currently Recommendation Follow C/S - I spoke with micro and they will hold BC x 21 days Check Bartonella IgG and IgM Monoscreen Continue Clinda Continue Zithromax - plan 5 days empiric Rx for CSD Follow temps Repeat LFT Agree with US of R axilla Monitor progress I will follow along with you Thank you for this consultation Explained plan to the patient
--- NOTE | 2018-07-30 14:32 | US ---
EXAM DATE: 07/30/2018 2:01 PM EST AGE/SEX: 53 years / Female INDICATIONS: Pain and swelling right axilla. CLINICAL DATA: This is the patient's initial encounter. Patient reports that signs and symptoms have been present for 2 weeks and indicates a pain score of 8/10. MEDICAL/SURGICAL HISTORY: Hypothyroidism. Tubal ligation. COMPARISON: No prior exams available for comparison. FINDINGS: There is an approximate 1.8 cm lymph node with a separate mass measures 2.9 cm in size slightly hyper vascular probably a lymph node as well. CONCLUSION: 1. Pathological lymph nodes. Electronically signed by: Rebel Rosa MD 07/30/2018 2:31 PM EST
--- NOTE | 2018-07-30 15:55 | P.PN ---
Subjective Interval history: Late entry, patient seen earlier this morning Follow-up on patient with right upper extremity cellulitis. Patient seen and examined. Patient states she continues to have swelling and pain in the right upper extremity but the redness has improved. She also states that she did not have a fever last night. She denies any chest pain or shortness of breath. She denies any cough. She denies any nausea vomiting or abdominal pain. She denies any urinary difficulties. She complains of constipation. She denies any ill contacts at home. Physical Exam Vital signs: Vital Signs 07/29/18 16:45 07/29/18 18:32 07/29/18 20:00 Temperature 99.4 F 99.4 F 98.4 F Pulse Rate 100 H 106 H 93 H Respiratory Rate 17 20 18 Blood Pressure 138/88 114/70 116/74 Pulse Oximetry 100 96 95 07/30/18 00:00 07/30/18 04:00 07/30/18 08:00 Temperature 99.6 F 98.3 F 99.2 F Pulse Rate 93 H 62 87 Respiratory Rate 18 18 20 Blood Pressure 130/83 140/79 124/76 Pulse Oximetry 98 98 98 07/30/18 12:00 Temperature 98.4 F Pulse Rate 94 H Respiratory Rate 20 Blood Pressure 144/83 H Pulse Oximetry 96 Intake & Output 07/29/18 07/30/18 07/30/18 18:59 06:59 18:59 Intake Total 2029 1350 / 1350 Balance 2029 1350 / 1350 Weight 73.482 kg 79.4 kg Intake: IV 1550 / 1550 1350 / 1350 NS Inj 1,000 ML @ 100 mls/hr IV 1000 / 1000 .CONT .Q10H [facility] Rx#:[id number] Azithromycin Inj 500 MG In NS 250 / 250 Inj 250 ML @ 250 mls/hr IV.SIG ONCE ONE Rx#:[id number] Cleocin 600 mg/NS Premix 600 mg 50 / 50 100 / 100 In 50 ml @ 100 mls/hr IV.SIG Q8H [facility] Rx#:[id number] NS Inj 1,000 ML @ 1000 mls/hr 1000 / 1000 IV.SIG BOLUS [facility] Rx#:[id number] Vancomycin Inj 1,000 MG In NS 250 / 250 250 / 250 Inj 250 ML @ 250 mls/hr IV.SIG Q12H [facility] Rx#:[id number] Oral 480 / 480 Other: # Voids 1 4 # Bowel Movements 1 Narrative: GENERAL: WDWN middle aged female, I[place]. Awake and alert. SKIN: Warm and dry. HEENT: Atraumatic. Normocephalic. Pupils equal and round. No scleral icterus. No injection or drainage. No nasal bleeding or discharge. Mucous membranes pink and moist. NECK: Trachea midline. CARDIOVASCULAR: Regular rate and rhythm. No murmurs auscultated. RESPIRATORY: No accessory muscle use. Clear to auscultation. Breath sounds equal bilaterally. GASTROINTESTINAL: Abdomen soft, non-tender, nondistended. +BS. MUSCULOSKELETAL: Extremities without clubbing or cyanosis. +healed wound on ulnar aspect of right hand. NTTP. +mild edema and tenderness over right forearm. +swelling noted in right axilla with tenderness to palpation, + palpable lymph node. No appreciable erythema or streaking. NEUROLOGICAL: Awake and alert. No obvious cranial nerve deficits. Motor grossly within normal limits. Able to move all extremities spontaneously. Normal speech. PSYCHIATRIC: Appropriate mood and affect; insight and judgment normal. Results - Labs CBC & Chem 7: 07/30/18 07:05 07/29/18 14:25 Laboratory Results - last 24 hr 07/29/18 07/29/18 07/29/18 14:25 14:25 14:39 WBC RBC Hgb Hct MCV MCH MCHC RDW Plt Count MPV Neut % (Auto) Lymph % (Auto) [place] % (Auto) Eos % (Auto) Baso % (Auto) Neut # (Auto) Lymph # (Auto) [place] # (Auto) Eos # (Auto) Baso # (Auto) WBC Differential . Diff Scan Auto diff confirmed Differential Comment Platelet Estimate Normal Platelet Morphology Normal ESR Greater than 140 H Lactic Acid Urine Color Straw Urine Clarity Clear Urine pH 7.0 Ur Specific [place] 1.001 L Urine Protein Negative Urine Glucose (UA) Negative Urine Ketones Negative Urine Occult Blood Small H Urine Nitrate Negative Urine Bilirubin Negative Urine Urobilinogen Less than 2 Ur Leukocyte Esterase Negative Urine WBC Less than 1 Micro UA Comment Culture not ind Ur Microscopic Review Not Reportable Urine Culture Comments Culture not ind 07/29/18 07/30/18 17:17 07:05 WBC 6.4 RBC 3.53 L Hgb 10.2 L Hct 29.9 L MCV 84.8 MCH 29.1 MCHC 34.3 RDW 14.1 Plt Count 363 MPV 8.4 Neut % (Auto) 64.4 Lymph % (Auto) 24.5 [place] % (Auto) 9.3 H Eos % (Auto) 1.2 Baso % (Auto) 0.6 Neut # (Auto) 4.1 Lymph # (Auto) 1.6 [place] # (Auto) 0.6 Eos # (Auto) 0.1 Baso # (Auto) 0.0 WBC Differential . Diff Scan Differential Comment Auto diff final Platelet Estimate Platelet Morphology ESR Lactic Acid 1.4 Urine Color Urine Clarity Urine pH Ur Specific [place] Urine Protein Urine Glucose (UA) Urine Ketones Urine Occult Blood Urine Nitrate Urine Bilirubin Urine Urobilinogen Ur Leukocyte Esterase Urine WBC Micro UA Comment Ur Microscopic Review Urine Culture Comments Microbiology 07/29/18 18:11 Sputum - Oral Tracheal Aspirate Gram Stain - Final 07/29/18 18:11 Sputum - Oral Tracheal Aspirate Sputum Culture - Preliminary Heavy growth normal respiratory moni at 24 hours 07/29/18 14:35 Blood - Peripheral Aerobic Blood Culture - Preliminary No growth in 1 day 07/29/18 14:35 Blood - Peripheral Anaerobic Blood Culture - Preliminary No growth in 1 day 07/29/18 14:25 Blood - Peripheral Aerobic Blood Culture - Preliminary No growth in 1 day 07/29/18 14:25 Blood - Peripheral Anaerobic Blood Culture - Preliminary No growth in 1 day 07/29/18 18:11 Urine - Clean Catch Urine Streptococcus pneumoniae Antigen ( M - Final Presumptive negative for streptococcus pneumoniae antigen, suggesting no current or recent infection. Infection due to Streptococcus pneumoniae cannot be ruled out since the antigen present in the sample may be below the detection limit of the test. 07/29/18 18:11 Urine - Clean Catch Urine Legionella Antigen - Final Presumptive negative for Legionella pneumophila serogroup 1 antigen in urine, suggesting no recent or recurrent infection. Infection due to Legionella cannot be ruled out since other serogroups and species may cause disease, antigen may not be present in urine in early infection, and the level of antigen present in the urine may be below the detection limit of the test. 07/29/18 15:07 Nasal Wash Influenza Types A,B Antigen - Final Negative for FLU A and B antigen Infection due to influenza A or B cannot be ruled out since the antigen present in the sample may be below the detection limit of the test. - Imaging Impressions Upper Extremity Ultrasound 07/30/18 00:00 CONCLUSION: 1. Pathological lymph nodes. Assessment and Plan - Plan 53 y/o Female who came to Emergency Room for evaluation of fever and right arm pain. Right UE cellulitis/lymphangitis with recurrent fevers Possible cat scratch disease ESR 140, CRP 18 xray right hand shows soft tissue swelling but otherwise unremarkable -obtain US right axilla -Consult infectious disease, appreciate assistance -Continue on Azithromycin and Clindamycin -bcx with no growth, follow until finalized CAP CXR showed left lower lobe subsegmental atelectasis Influenza neg strept pneumo and legionella neg sputum cx with heavy growth of normal moni -continue on abx -continue on bronchodilator and mucolytic -IS at bedside, encourage use Hypothyroidism -resume on home dose of [place] thyroid Hypokalemia -s/p po repletion -follow up BMP pending Tobacco dependence -strongly recommended to stop smoking DVT prophylaxis -Lovenox Code Status: Full Discussed Condition With: patient, nursing staff, Dr. Baird Discharge Planning: Discharge pending ID clearance
[2018-07-30] MEDS: Azithromycin Inj 500 MG in Sodium Chlor 0.9% Inj 250 ML IV.SIG SCH (16:07)
[2018-07-30] MEDS: Enoxaparin Inj 40 MG/0.4 ML Syringe SQ SCH (16:09)
[2018-07-30 16:53] LABS: Calcium 8.4 mg/dL (8.5-10.1); Carbon Dioxide 25.3 meq/L (21.0-32.0); Magnesium 2.1 mg/dL (1.5-2.5); Potassium 3.8 meq/L (3.5-5.1)
[2018-07-30] MEDS: Acetaminophen 325 MG Tablet PO PRN ×2 (17:12→23:23)
[2018-07-30 17:18] LABS: Mono Screen Neg (Neg)
[2018-07-30] MEDS: Polyethylene Glycol 3350 17 GM Packet PO SCH (17:23)
[2018-07-30] MEDS: Senna/Docusate Sodium 8.6/50 MG Tablet PO SCH (22:14)
[2018-07-31] MEDS ORDERED: Pharmacy Ordered Lab Info OTHER ONE (04:45)
[2018-07-31] MEDS: Clindamycin 600 mg/NS Premix 600 MG/50 ML PIGGYBACK IV.SIG SCH ×2 (06:18→14:24)
--- NOTE | 2018-07-31 06:59 | P.PN ---
Subjective Interval history: Patient states she had another episode of being drenched with sweat overnight. Had to use a hairdryer to dry her hair it was so wet. Had to have all of her bedding changed. She says she had a burning sensation headache over the back of her head during the night as well. She denies any neck pain or difficulty with neck ROM. She does not report a headache at this time. She continues to have a dry nonproductive cough. She says the pain and tenderness in her RUE is still present but has improved. She does not know if the swelling in her right axilla is any better. She denies any chest pain. She reports a sensation of shortness of breath that is improved with oxygen supplementation. Her oxygen sats have been normal on room air. She says her 15yr old daughter spiked a fever of 102 last night but she does not know if she has any other symptoms. She denies any recent travel but states her boyfriend recently went to the [facility] but has no illnesses. She works with [employer] as an occupation. Physical Exam Vital signs: Vital Signs 07/30/18 08:00 07/30/18 12:00 07/30/18 16:00 Temperature 99.2 F 98.4 F 99.8 F H Pulse Rate 87 94 H 98 H Respiratory Rate 20 20 20 Blood Pressure 124/76 144/83 H 134/76 Pulse Oximetry 98 96 96 07/30/18 20:00 07/30/18 20:30 07/31/18 00:00 Temperature 98.0 F 97.9 F Pulse Rate 91 H 91 H 76 Respiratory Rate 18 18 Blood Pressure 105/65 153/85 H Pulse Oximetry 97 99 07/31/18 04:00 07/31/18 06:04 Temperature 97.1 F L Pulse Rate 74 Respiratory Rate 18 Blood Pressure 134/91 H Pulse Oximetry 100 Intake & Output 07/30/18 07/30/18 07/31/18 06:59 18:59 06:59 Intake Total 1350 / 1350 3350 / 3350 1050 / 1050 Balance 1350 / 1350 3350 / 3350 1050 / 1050 Weight 79.4 kg 79.4 kg Intake: IV 1350 / 1350 1350 / 1350 1050 / 1050 NS Inj 1,000 ML @ 100 mls/hr IV 1000 / 1000 1000 / 1000 1000 / 1000 .CONT .Q10H [facility] Rx#:[id number] Azithromycin Inj 500 MG In NS 250 / 250 Inj 250 ML @ 250 mls/hr IV.SIG Q24H [facility] Rx#:[id number] Cleocin 600 mg/NS Premix 600 mg 100 / 100 100 / 100 50 / 50 In 50 ml @ 100 mls/hr IV.SIG Q8H [facility] Rx#:[id number] Vancomycin Inj 1,000 MG In NS 250 / 250 Inj 250 ML @ 250 mls/hr IV.SIG Q12H [facility] Rx#:[id number] Oral 1999 Other: # Voids 4 4 5 # Bowel Movements 1 Narrative: GENERAL: WDWN middle aged female, INAD. Awake and alert. Sitting up in bed. SKIN: Warm and dry. HEENT: Atraumatic. Normocephalic. Pupils equal and round. No scleral icterus. No injection or drainage. No nasal bleeding or discharge. Mucous membranes pink and moist. NECK: Trachea midline. CARDIOVASCULAR: Regular rate and rhythm. No murmurs auscultated. RESPIRATORY: No accessory muscle use. Clear to auscultation. Breath sounds equal bilaterally. GASTROINTESTINAL: Abdomen soft, non-tender, nondistended. +BS. MUSCULOSKELETAL: Extremities without clubbing or cyanosis. +healed wound on ulnar aspect of right hand. NTTP. +mild edema and tenderness over right forearm, improving. +swelling noted in right axilla with tenderness to palpation, improved from yesterday, +tender palpable lymph node. No appreciable erythema or streaking. NEUROLOGICAL: Awake and alert. No obvious cranial nerve deficits. Motor grossly within normal limits. Able to move all extremities spontaneously. Normal speech. PSYCHIATRIC: Appropriate mood and affect; insight and judgment normal. Results - Labs CBC & Chem 7: 07/30/18 07:05 07/31/18 05:08 Laboratory Results - last 24 hr 07/30/18 07/30/18 07/30/18 07:05 15:54 15:54 WBC 6.4 RBC 3.53 L Hgb 10.2 L Hct 29.9 L MCV 84.8 MCH 29.1 MCHC 34.3 RDW 14.1 Plt Count 363 MPV 8.4 Neut % (Auto) 64.4 Lymph % (Auto) 24.5 [place] % (Auto) 9.3 H Eos % (Auto) 1.2 Baso % (Auto) 0.6 Neut # (Auto) 4.1 Lymph # (Auto) 1.6 [place] # (Auto) 0.6 Eos # (Auto) 0.1 Baso # (Auto) 0.0 WBC Differential . Differential Comment Auto diff final Sodium 138 Potassium 3.8 Chloride 103 Carbon Dioxide 25.3 Anion Gap 10 BUN 4 L Creatinine 0.71 Estimated GFR 87 L Random Glucose 110 H Calcium 8.4 L Magnesium 2.1 Monoscreen Neg Microbiology 07/29/18 18:11 Sputum - Oral Tracheal Aspirate Gram Stain - Final 07/29/18 18:11 Sputum - Oral Tracheal Aspirate Sputum Culture - Preliminary Heavy growth normal respiratory moni at 24 hours 07/29/18 14:35 Blood - Peripheral Aerobic Blood Culture - Preliminary No growth in 1 day 07/29/18 14:35 Blood - Peripheral Anaerobic Blood Culture - Preliminary No growth in 1 day 07/29/18 14:25 Blood - Peripheral Aerobic Blood Culture - Preliminary No growth in 1 day 07/29/18 14:25 Blood - Peripheral Anaerobic Blood Culture - Preliminary No growth in 1 day - Imaging Impressions Upper Extremity Ultrasound 07/30/18 00:00 CONCLUSION: 1. Pathological lymph nodes. Assessment and Plan - Plan 53 y/o Female who came to Emergency Room for evaluation of fever and right arm pain. Right UE cellulitis/lymphangitis with recurrent fevers Possible cat scratch disease ESR 140, CRP 18 Tmax overnight 99.8 xray right hand shows soft tissue swelling but otherwise unremarkable US right axilla reveals pathological lymph nodes -Infectious disease following, appreciate assistance. Monoscreen neg. Bartonella titers pending. -Continue on Azithromycin and Clindamycin -bcx with no growth, follow until finalized. Fungal BCX pending. CAP CXR showed left lower lobe subsegmental atelectasis Influenza neg strept pneumo and legionella neg sputum cx with heavy growth of normal moni -continue on abx -continue on bronchodilator and mucolytic -IS at bedside, encourage use -07/31 c/o dyspnea and cough, obtain Ddimer, if elevated will followup with CTA r /o PE Hypothyroidism -continue on home dose of [place] thyroid Hypokalemia -resolved s/p po repletion Tobacco dependence -strongly recommended to stop smoking DVT prophylaxis -Lovenox Code Status: Full Discussed Condition With: patient, nursing staff, Dr. Baird Discharge Planning: Discharge pending ID clearance
[2018-07-31 07:48] LABS: Alanine Aminotransferase 28 U/L (10-53); Albumin 2.1 g/dL (3.4-5.0); Anion Gap 8 meq/L (5-15); Aspartate Aminotransferase 22 U/L (15-37); Blood Urea Nitrogen 3 mg/dL (7-18); Calcium 8.3 mg/dL (8.5-10.1); Carbon Dioxide 27.2 meq/L (21.0-32.0); Chloride 103 meq/L (98-107); Glomerular Filtration Rate Greater Than 89 mL/min (>89); Glucose,Random 101 mg/dL (74-106); Sodium 138 meq/L (136-145)
[2018-07-31 07:54] LABS: Alkaline Phosphatase 162 U/L (45-117); Total Protein 8.1 g/dL (6.4-8.2)
[2018-07-31] MEDS: Senna/Docusate Sodium 8.6/50 MG Tablet PO SCH ×2 (08:19→20:40)
[2018-07-31] MEDS: guaiFENesin 600 MG ER Tablet PO SCH ×2 (08:19→20:41)
[2018-07-31] MEDS: Polyethylene Glycol 3350 17 GM Packet PO SCH (08:19)
[2018-07-31] MEDS: Sod Chloride 0.9% Inj 1,000 ML IV.CONT SCH ×2 (08:24→18:31)
--- NOTE | 2018-07-31 13:42 | P.PNID ---
Subjective Remarks: Patient is a 53-year-old female, presented to the hospital for further evaluation of red streaks going up her right upper extremity. Patient stated she had a cat bite in her right index finger about 2 months ago. It was a young kitten and they foster pets. She apparently developed an infection on that finger. She went to [facility], and she was given Augmentin and she finished about 8 days of the treatment. The right index finger got better. About a month ago patient developed problem on the lateral aspect of her right hand and its towards the fifth MCP joint. It apparently became red and swollen and there was a white area that she had noticed and she tried draining it but nothing came out. 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 She was not sure if it was at all related to the cat bite that she had on her other finger. She did not seek any medical help, and it eventually got better. About 12 days ago patient started developing fevers and chills. She went to a walk-in clinic and she was told that it might just be the flu. She also started experiencing some pain and discomfort in her right armpit. The day prior to admission she noted red streaks going up her forearm and because of her other symptoms she decided to go to the hospital for further evaluation and treatment. During her visit in the walk-in clinic she had some blood work done and she was told that her TSH was elevated. She was apparently started on [place] Thyroid. She has not had any respiratory symptoms. Denies any sore throat or any swollen gland. Denies any joint pains. She has not had any skin rash. No nausea or vomiting. She has been constipated. Her p.o. intake has not been great. She denies any urinary complaints. Patient has 4 children at home who are in the teens to the early 20s and none of them are sick. The kitten that bit her apparently about 3 days after she sustained a bite. Since admission she has not had any fever. Highest temperature has been about 99+. Chest x-ray showing some left lower lobe atelectasis. X-ray of the hand shows some soft tissue swelling but no foreign body seen. Patient has received a azithromycin, vancomycin and clindamycin. She was noted to have some lymphangitic streaks in her right upper extremity, and according to the patient that has improved some. She complains of significant tenderness in her right armpit. Infectious disease consultation has been requested to assist with evaluation and treatment of patient with fevers. Notes reviewed Temps ok C/O sweats last night and had some MEDRANO MEDRANO has resolved Notes her RUE and R axilla feels a little better US R axilla, with possibly [address] CSD Ab pending BC negative Her 15 yearold daughter with fever, per patient has been sick on and off x 1 month No travel Has 4 cats they have had since February Fostering 4 kittens x 1 month Antibiotics: Zithromax Clindamycin Lines: PIV Past Medical History: Hypothyroidism Tubal ligation Allergies/Adverse Reactions: Allergies Penicillins Allergy (Unknown, Verified 07/29/18 13:54) Rash Objective Vital Signs 07/30/18 16:00 07/30/18 20:00 07/30/18 20:30 Temperature 99.8 F H 98.0 F Pulse Rate 98 H 91 H 91 H Respiratory Rate 20 18 Blood Pressure 134/76 105/65 Pulse Oximetry 96 97 07/31/18 00:00 07/31/18 04:00 07/31/18 06:04 Temperature 97.9 F 97.1 F L Pulse Rate 76 74 Respiratory Rate 18 18 Blood Pressure 153/85 H 134/91 H Pulse Oximetry 99 100 07/31/18 08:00 07/31/18 11:33 07/31/18 12:00 Temperature 98.1 F 98.5 F Pulse Rate 76 87 Respiratory Rate 18 22 Blood Pressure 143/68 H 152/70 H Pulse Oximetry 100 96 100 Intake & Output 07/30/18 07/31/18 07/31/18 18:59 06:59 18:59 Intake Total 3350 / 3350 1100 / 1100 1000 / 1000 Balance 3350 / 3350 1100 / 1100 1000 / 1000 Weight 79.4 kg Intake: IV 1350 / 1350 1100 / 1100 1000 / 1000 NS Inj 1,000 ML @ 100 mls/hr IV 1000 / 1000 1000 / 1000 1000 / 1000 .CONT .Q10H [facility] Rx#:[id number] Azithromycin Inj 500 MG In NS 250 / 250 Inj 250 ML @ 250 mls/hr IV.SIG Q24H [facility] Rx#:[id number] Cleocin 600 mg/NS Premix 600 mg 100 / 100 100 / 100 In 50 ml @ 100 mls/hr IV.SIG Q8H [facility] Rx#:[id number] Oral 1999 Other: # Voids 4 5 Date of Last Bowel Movement 07/31/18 # Bowel Movements 1 07/29/18 18:11 Sputum - Oral Tracheal Aspirate Gram Stain - Final 07/29/18 18:11 Sputum - Oral Tracheal Aspirate Sputum Culture - Final Heavy growth normal respiratory moni 07/29/18 14:25 Blood - Peripheral Aerobic Blood Culture - Preliminary No growth in 2 days 07/29/18 14:25 Blood - Peripheral Anaerobic Blood Culture - Preliminary No growth in 2 days 07/29/18 14:35 Blood - Peripheral Aerobic Blood Culture - Preliminary No growth in 2 days 07/29/18 14:35 Blood - Peripheral Anaerobic Blood Culture - Preliminary No growth in 2 days 07/30/18 07:05 Blood - Peripheral Blood Fungal Culture - Pending 07/30/18 07:05 Blood - Peripheral Blood Fungal Culture - Pending 07/29/18 18:11 Urine - Clean Catch Urine Streptococcus pneumoniae Antigen ( M - Final Presumptive negative for streptococcus pneumoniae antigen, suggesting no current or recent infection. Infection due to Streptococcus pneumoniae cannot be ruled out since the antigen present in the sample may be below the detection limit of the test. 07/29/18 18:11 Urine - Clean Catch Urine Legionella Antigen - Final Presumptive negative for Legionella pneumophila serogroup 1 antigen in urine, suggesting no recent or recurrent infection. Infection due to Legionella cannot be ruled out since other serogroups and species may cause disease, antigen may not be present in urine in early infection, and the level of antigen present in the urine may be below the detection limit of the test. 07/29/18 15:07 Nasal Wash Influenza Types A,B Antigen - Final Negative for FLU A and B antigen Infection due to influenza A or B cannot be ruled out since the antigen present in the sample may be below the detection limit of the test. Lab - Hematology Results 07/29/18 07/29/18 07/30/18 14:25 14:25 07:05 WBC 6.4 6.4 RBC 3.73 L 3.53 L Hgb 11.1 L 10.2 L Hct 32.1 L 29.9 L MCV 86.1 84.8 MCH 29.8 29.1 MCHC 34.7 34.3 RDW 14.3 14.1 Plt Count 377 363 MPV 8.3 8.4 Prelim Diff (Auto) Slide review pending Neut % (Auto) 68.6 64.4 Lymph % (Auto) 20.1 24.5 [place] % (Auto) 9.5 H 9.3 H Eos % (Auto) 1.5 1.2 Baso % (Auto) 0.3 0.6 Neut # (Auto) 4.4 4.1 Lymph # (Auto) 1.3 1.6 [place] # (Auto) 0.6 0.6 Eos # (Auto) 0.1 0.1 Baso # (Auto) 0.0 0.0 WBC Differential . . Diff Scan Auto diff confirmed Differential Comment . Auto diff final Platelet Estimate Normal Platelet Morphology Normal ESR Greater than 140 H Lab - Chemistry Results 07/29/18 07/29/18 07/29/18 14:25 14:25 17:17 Sodium 136 Potassium 3.2 L Chloride 97 L Carbon Dioxide 32.8 H Anion Gap 6 BUN 5 L Creatinine 0.77 Estimated GFR 79 L Random Glucose 93 Lactic Acid 2.1 H 1.4 Calcium 8.3 L Magnesium 2.2 Total Bilirubin 0.3 Direct Bilirubin Indirect Bilirubin AST 27 ALT 34 Alkaline Phosphatase 200 H C-Reactive Protein 18.00 H Total Protein 8.9 H Albumin 2.4 L Lipase 182 TSH 7.910 H 07/30/18 07/31/18 15:54 05:08 Sodium 138 138 Potassium 3.8 4.0 Chloride 103 103 Carbon Dioxide 25.3 27.2 Anion Gap 10 8 BUN 4 L 3 L Creatinine 0.71 0.68 Estimated GFR 87 L Greater than 89 Random Glucose 110 H 101 Lactic Acid Calcium 8.4 L 8.3 L Magnesium 2.1 Total Bilirubin 0.3 Direct Bilirubin 0.1 Indirect Bilirubin 0.2 AST 22 ALT 28 Alkaline Phosphatase 162 H C-Reactive Protein Total Protein 8.1 D Albumin 2.1 L Lipase TSH Imaging: ITS Impressions Chest X-Ray 07/29/18 13:55 CONCLUSION: Minimal linear density left lower lobe likely subsegmental atelectasis although minimal infiltrate cannot be excluded. Hand X-Ray 07/29/18 14:04 CONCLUSION: Soft tissue swelling without evidence of radiopaque foreign body. Upper Extremity Ultrasound 07/30/18 00:00 CONCLUSION: 1. Pathological lymph nodes. Physical Exam: GENERAL: awake and alert, not in respiratory distress. She does not look toxic appearing SKIN: Warm and dry. No generalized rash, no ecchymoses and no evidence of embolic lesions. HEAD: Atraumatic. Normocephalic. No temporal wasting, or tenderness. EYES: [place] conjunctiva. No petechia or hemorrhage. Pupils equal, round and reactive to light. Extraocular movements full and intact. No scleral icterus. No injection or drainage. EARS, NOSE AND THROAT: Nose without bleeding or purulent nasal discharge. No sinus tenderness. Mucous membranes pink and moist. No oral lesions noted. No exudate. No oral thrush. NECK: Trachea midline. Supple and not tender, no meningeal signs. No lymphadenopathy CARDIOVASCULAR: Regular rate and rhythm. No murmurs, rubs or gallops heard RESPIRATORY: Clear to auscultation. Breath sounds equal bilaterally. No rales , wheezing or rhonchi ABDOMEN: Soft, non-tender, nondistended. Bowel sounds present and normoactive. No guarding. No rebound. No organomegaly. EXTREMITIES: No clubbing, cyanosis, or edema in both LE. No joint effusion, has good ROM. No calf tenderness. R hand - there is a healed wound on ulnar side of her 5th MCP, light pink color, non tender. There is a tender lymphangitic streak in her forearm and upper arm. R axilla - there is swelling , and tender LN palpated, but no discoloration of skin overlying that tender LN. Tenderness is better. NEUROLOGICAL: Non-focal PSYCHIATRIC: Normal affect, calm and cooperative. LINE: No evidence of infection Assessment and Plan - Plan Impression Fevers with lymphangitis and possible lymphadenopathy - ?CSD - ?other etiology Recent cat bite to her RIF, no evidence of finger infection currently Recommendation Follow C/S Check Bartonella IgG and IgM Continue Clinda Add Cipro Continue Zithromax - plan 5 days empiric Rx for CSD Follow temps Repeat LFT CTA/P Follow temps Monitor progress
[2018-07-31] MEDS ORDERED: Diatrizoate Meglum/Diatrizoate Sod Liq 9 ML UDC PO ONE (14:30)
[2018-07-31] MEDS: Azithromycin Inj 500 MG in Sodium Chlor 0.9% Inj 250 ML IV.SIG SCH (15:16)
[2018-07-31] MEDS: Enoxaparin Inj 40 MG/0.4 ML Syringe SQ SCH ×2 (18:31→19:43)
[2018-07-31] MEDS: Acetaminophen 325 MG Tablet PO PRN (19:02)
--- NOTE | 2018-07-31 19:43 | CT ---
EXAM DATE: 07/31/2018 7:36 PM EST AGE/SEX: 53 years / Female INDICATIONS: Short of breath. CLINICAL DATA: This is the patient's initial encounter. Patient reports that signs and symptoms have been present for 2 weeks and indicates a pain score of 0/10. MEDICAL/SURGICAL HISTORY: None. Tubal ligation. RADIATION DOSE: 8.51 CTDI (mGy) COMPARISON: No prior exams available for comparison. TECHNIQUE: Volumetric scanning was performed using a multi-row detector CT scanner during bolus infu rhonda of 75 ml Omnipaque 350 (iohexol) nonionic water-soluble contrast as a cumulative dose for multi ple exams. The data was post processed with a variety of visualization algorithms including full volu me maximum intensity projection and sliding thin slab reformation. Using automated exposure control and adjustment of the mA and/or kV according to patient size, radiation dose was kept as low as reaso nably achievable to obtain optimal diagnostic quality images. DICOM format image data is available e lectronically for review and comparison. FINDINGS: There is no pulmonary embolus. Minimal atelectasis both lung bases. No pleural effusion or pneumothorax. No evidence of pneumonia. Heart size within normal limits. Enlarged and indurated appearing right axillary lymph nodes are present measuring up to 3.6 cm in siz e. There is no left axillary lymphadenopathy. Also no mediastinal or hilar lymphadenopathy. No percep tible breast mass. CONCLUSION: 1. No pulmonary embolus. 2. Trace atelectasis of both lung bases. 3. Nonspecific right axillary lymphadenopathy. There is no mediastinal or hilar lymphadenopathy. Electronically signed by: Elias Dove MD 07/31/2018 7:42 PM EST
--- NOTE | 2018-07-31 19:50 | CT ---
EXAM DATE: 07/31/2018 7:34 PM EST AGE/SEX: 53 years / Female INDICATIONS: Abnormal liver function test. Possible cat scratch disease. CLINICAL DATA: This is the patient's initial encounter. Patient reports that signs and symptoms have been present for 2 weeks and indicates a pain score of 0/10. MEDICAL/SURGICAL HISTORY: None. Tubal ligation. ORAL CONTRAST: No oral contrast ingested. RADIATION DOSE: 15.84 CTDI (mGy) COMPARISON: [facility], CTA PULMONARY W CONTRAST W 3D, 07/31/2018. . TECHNIQUE: Multiple contiguous axial images were obtained through the abdomen and pelvis following b olus infusion of 75 ml Omnipaque 350 (iohexol) nonionic water-soluble contrast as a cumulative dose for multiple exams. No oral contrast ingested. Using automated exposure control and adjustment of t he mA and/or kV according to patient size, radiation dose was kept as low as reasonably achievable to obtain optimal diagnostic quality images. DICOM format image data is available electronically for r eview and comparison. FINDINGS: Liver measures 20 cm craniocaudal. Spleen measures 7.7 x 14.6 x 14.2 cm. No focal hepatic or splenic lesion. Pancreas, adrenal glands and kidneys are all within normal limits. No obstruction or inflammatory changes are seen of the gastrointestinal tract. No free fluid or free air. No intra-abdominal lymphadenopathy. Trace atelectasis of the visualized lung bases. Actually better seen on this study relative to the CT pulmonary angiogram is a 6 mm nodule within the right minor fissure. Visualized osseous structures are within normal limits. CONCLUSION: 1. Mild, nonspecific hepatosplenomegaly. 2. No focal inflammatory changes or other acute abnormalities are demonstrated. There is no lymphade nopathy within the abdomen or pelvis. 3. 6 mm right lung base nodule. Six-month follow-up noncontrast chest CT is recommended. Otherwise, there is mild right basilar atelectasis. Electronically signed by: Elias Dove MD 07/31/2018 7:49 PM EST
[2018-08-01] MEDS: Clindamycin 600 mg/NS Premix 600 MG/50 ML PIGGYBACK IV.SIG SCH ×2 (00:57→08:49)
[2018-08-01] MEDS: Acetaminophen 325 MG Tablet PO PRN (02:42)
--- NOTE | 2018-08-01 07:38 | P.PN ---
Subjective Interval history: Follow up on patient with fevers, RUE lymphangitis. Patient seen and examined. Patient says she feels better today. She reports mild sweating last night but denies any fevers. She denies any headache. She reports improvement in RUE pain and swelling. She denies any cough, chest pain or dyspnea. Physical Exam Vital signs: Vital Signs 07/31/18 08:00 07/31/18 09:00 07/31/18 11:33 Temperature 98.1 F Pulse Rate 76 78 Respiratory Rate 18 Blood Pressure 143/68 H Pulse Oximetry 100 96 07/31/18 12:00 07/31/18 16:00 07/31/18 20:00 Temperature 98.5 F 98.9 F 99.9 F H Pulse Rate 87 89 91 H Respiratory Rate 22 18 20 Blood Pressure 152/70 H 134/85 142/77 H Pulse Oximetry 100 99 97 08/01/18 00:00 08/01/18 04:00 Temperature 97.7 F 98 F Pulse Rate 77 84 Respiratory Rate 20 20 Blood Pressure 114/72 121/64 Pulse Oximetry 96 Intake & Output 07/31/18 08/01/18 08/01/18 18:59 06:59 18:59 Intake Total 4800 / 4800 Output Total 5 / 5 Balance 4800 / 4800 -5 / -5 Weight 79.3 kg Intake: IV 2300 / 2300 NS Inj 1,000 ML @ 42 mls/hr IV. 1999 CONT .[id number] PATRICIA Rx#:[id number] Azithromycin Inj 500 MG In NS 250 / 250 Inj 250 ML @ 250 mls/hr IV.SIG Q24H PATRICIA Rx#:[id number] Cleocin 600 mg/NS Premix 600 mg 50 / 50 In 50 ml @ 100 mls/hr IV.SIG Q8H PATRICIA Rx#:[id number] Oral 2500 / 2500 Output: Urine 5 / 5 Other: # Voids 3 Date of Last Bowel Movement 07/31/18 08/01/18 # Bowel Movements 2 1 Narrative: GENERAL: WDWN middle aged female, INAD. Awake and alert. Sitting up in bed. Appears comfortable. SKIN: Warm and dry. HEENT: Atraumatic. Normocephalic. Pupils equal and round. No scleral icterus. No injection or drainage. No nasal bleeding or discharge. Mucous membranes pink and moist. NECK: Trachea midline. CARDIOVASCULAR: Regular rate and rhythm. No murmurs auscultated. RESPIRATORY: No accessory muscle use. Clear to auscultation. Breath sounds equal bilaterally. GASTROINTESTINAL: Abdomen soft, non-tender, nondistended. +BS. MUSCULOSKELETAL: Extremities without clubbing or cyanosis. +healed wound on ulnar aspect of right hand. NTTP. +mild edema and tenderness over right forearm, improving. +swelling noted in right axilla with tenderness to palpation, improved from yesterday, +tender palpable lymph node. No appreciable erythema or streaking. NEUROLOGICAL: Awake and alert. No obvious cranial nerve deficits. Motor grossly within normal limits. Able to move all extremities spontaneously. Normal speech. PSYCHIATRIC: Appropriate mood and affect; insight and judgment normal. Results - Labs CBC & Chem 7: 07/30/18 07:05 07/31/18 05:08 Laboratory Results - last 24 hr 07/31/18 07/31/18 05:08 11:42 D-Dimer Quant (PE/DVT) 3.75 H Sodium 138 Potassium 4.0 Chloride 103 Carbon Dioxide 27.2 Anion Gap 8 BUN 3 L Creatinine 0.68 Estimated GFR Greater than 89 Random Glucose 101 Calcium 8.3 L Total Bilirubin 0.3 Direct Bilirubin 0.1 Indirect Bilirubin 0.2 AST 22 ALT 28 Alkaline Phosphatase 162 H Total Protein 8.1 D Albumin 2.1 L Microbiology 07/29/18 18:11 Sputum - Oral Tracheal Aspirate Gram Stain - Final 07/29/18 18:11 Sputum - Oral Tracheal Aspirate Sputum Culture - Final Heavy growth normal respiratory moni 07/29/18 14:25 Blood - Peripheral Aerobic Blood Culture - Preliminary No growth in 2 days 07/29/18 14:25 Blood - Peripheral Anaerobic Blood Culture - Preliminary No growth in 2 days 07/29/18 14:35 Blood - Peripheral Aerobic Blood Culture - Preliminary No growth in 2 days 07/29/18 14:35 Blood - Peripheral Anaerobic Blood Culture - Preliminary No growth in 2 days - Imaging Impressions Abdomen/Pelvis CT 07/31/18 00:00 CONCLUSION: 1. Mild, nonspecific hepatosplenomegaly. 2. No focal inflammatory changes or other acute abnormalities are demonstrated. There is no lymphadenopathy within the abdomen or pelvis. 3. 6 mm right lung base nodule. Six-month follow-up noncontrast chest CT is recommended. Otherwise, there is mild right basilar atelectasis. Chest CTA 07/31/18 00:00 CONCLUSION: 1. No pulmonary embolus. 2. Trace atelectasis of both lung bases. 3. Nonspecific right axillary lymphadenopathy. There is no mediastinal or hilar lymphadenopathy. Assessment and Plan - Plan 53 y/o Female who came to Emergency Room for evaluation of fever and right arm pain. Right UE cellulitis/lymphangitis with recurrent fevers Possible cat scratch disease ESR 140, CRP 18 Tmax overnight 99.8 xray right hand shows soft tissue swelling but otherwise unremarkable US right axilla reveals pathological lymph nodes -Infectious disease following, appreciate assistance. Monoscreen neg. Bartonella titers pending. CT abd/pelvis neg. -Continue on Azithromycin and Clindamycin -bcx with no growth x 3 days, follow until finalized. Fungal BCX pending. CAP CXR showed left lower lobe subsegmental atelectasis Influenza neg strept pneumo and legionella neg sputum cx with heavy growth of normal moni -continue on abx -continue on bronchodilator and mucolytic -IS at bedside, encourage use -07/31 c/o dyspnea and cough, D dimer elevated 3.75, follow up CTA without any e/ o PE Incidental finding of 6mm right lung base nodule -dw patient, recommend follow up noncontrast CT chest in 6 mos. Hypothyroidism -continue on home dose of [place] thyroid. F/u with PCP to have TSH level rechecked in next 6-8 weeks. Hypokalemia -resolved s/p po repletion Tobacco dependence -strongly recommended to stop smoking DVT prophylaxis -Lovenox Code Status: Full Discussed Condition With: patient, nursing staff, Dr. Baird, Dr. Trevino Discharge Planning: Discharge pending ID clearance - hopefully discharge later today
[2018-08-01] MEDS: Senna/Docusate Sodium 8.6/50 MG Tablet PO SCH (08:49)
[2018-08-01] MEDS: guaiFENesin 600 MG ER Tablet PO SCH (08:50)
[2018-08-01] MEDS: Polyethylene Glycol 3350 17 GM Packet PO SCH (08:50)
[2018-08-01 09:44] VITALS: RESP 18
[2018-08-01 13:03] VITALS: BP 97/57; TEMP 97.8; O2SAT 100
[2018-08-01 13:56] VITALS: PULSE 86
--- NOTE | 2018-08-01 14:33 | P.PNID ---
Subjective Remarks: Patient is a 53-year-old female, presented to the hospital for further evaluation of red streaks going up her right upper extremity. Patient stated she had a cat bite in her right index finger about 2 months ago. It was a young kitten and they foster pets. She apparently developed an infection on that finger. She went to [facility], and she was given Augmentin and she finished about 8 days of the treatment. The right index finger got better. About a month ago patient developed problem on the lateral aspect of her right hand and its towards the fifth MCP joint. It apparently became red and swollen and there was a white area that she had noticed and she tried draining it but nothing came out. She thought it might have been from the container washer holes that she was using. She was not sure if it was at all related to the cat bite that she had on her other finger. She did not seek any medical help, and it eventually got better. About 12 days ago patient started developing fevers and chills. She went to a walk-in clinic and she was told that it might just be the flu. She also started experiencing some pain and discomfort in her right armpit. The day prior to admission she noted red streaks going up her forearm and because of her other symptoms she decided to go to the hospital for further evaluation and treatment. During her visit in the walk-in clinic she had some blood work done and she was told that her TSH was elevated. She was apparently started on [place] Thyroid. She has not had any respiratory symptoms. Denies any sore throat or any swollen gland. Denies any joint pains. She has not had any skin rash. No nausea or vomiting. She has been constipated. Her p.o. intake has not been great. She denies any urinary complaints. Patient has 4 children at home who are in the teens to the early 20s and none of them are sick. The kitten that bit her apparently about 3 days after she sustained a bite. Since admission she has not had any fever. Highest temperature has been about 99+. Chest x-ray showing some left lower lobe atelectasis. X-ray of the hand shows some soft tissue swelling but no foreign body seen. Patient has received a azithromycin, vancomycin and clindamycin. She was noted to have some lymphangitic streaks in her right upper extremity, and according to the patient that has improved some. She complains of significant tenderness in her right armpit. Infectious disease consultation has been requested to assist with evaluation and treatment of patient with fevers. Notes reviewed Temps 99+ Feels better Pain RUE and R axilla better Serologies pending C/O sweats last night and had some MEDRANO CT no lesions seen in lived, has mild hepatomegaly Antibiotics: Zithromax Clindamycin Cipro Lines: PIV Past Medical History: Hypothyroidism Tubal ligation Allergies/Adverse Reactions: Allergies Penicillins Allergy (Unknown, Verified 07/29/18 13:54) Rash Objective Vital Signs 07/31/18 16:00 07/31/18 20:00 08/01/18 00:00 Temperature 98.9 F 99.9 F H 97.7 F Pulse Rate 89 91 H 77 Respiratory Rate 18 20 20 Blood Pressure 134/85 142/77 H 114/72 Pulse Oximetry 99 97 08/01/18 04:00 08/01/18 08:00 08/01/18 08:05 Temperature 98 F 97.7 F Pulse Rate 84 82 Respiratory Rate 20 18 Blood Pressure 121/64 106/52 L Pulse Oximetry 96 95 99 08/01/18 12:00 Temperature 97.8 F Pulse Rate 86 Respiratory Rate 18 Blood Pressure 97/57 L Pulse Oximetry 100 Intake & Output 07/31/18 08/01/18 08/01/18 18:59 06:59 18:59 Intake Total 4800 / 4800 50 / 50 Output Total 5 / 5 Balance 4800 / 4800 -5 / -5 50 / 50 Weight 79.3 kg Intake: IV 2300 / 2300 50 / 50 NS Inj 1,000 ML @ 42 mls/hr IV. 1999 CONT .[id number] PATRICIA Rx#:[id number] Azithromycin Inj 500 MG In NS 250 / 250 Inj 250 ML @ 250 mls/hr IV.SIG Q24H PATIRCIA Rx#:[id number] Cleocin 600 mg/NS Premix 600 mg 50 / 50 50 / 50 In 50 ml @ 100 mls/hr IV.SIG Q8H PATRICIA Rx#:[id number] Oral 2500 / 2500 Output: Urine 5 / 5 Other: # Voids 3 Date of Last Bowel Movement 07/31/18 08/01/18 08/01/18 # Bowel Movements 2 1 07/29/18 14:25 Blood - Peripheral Aerobic Blood Culture - Preliminary No growth in 3 days 07/29/18 14:25 Blood - Peripheral Anaerobic Blood Culture - Preliminary No growth in 3 days 07/29/18 14:35 Blood - Peripheral Aerobic Blood Culture - Preliminary No growth in 3 days 07/29/18 14:35 Blood - Peripheral Anaerobic Blood Culture - Preliminary No growth in 3 days 07/29/18 18:11 Sputum - Oral Tracheal Aspirate Gram Stain - Final 07/29/18 18:11 Sputum - Oral Tracheal Aspirate Sputum Culture - Final Heavy growth normal respiratory moni 07/30/18 07:05 Blood - Peripheral Blood Fungal Culture - Pending 07/30/18 07:05 Blood - Peripheral Blood Fungal Culture - Pending 07/29/18 18:11 Urine - Clean Catch Urine Streptococcus pneumoniae Antigen ( M - Final Presumptive negative for streptococcus pneumoniae antigen, suggesting no current or recent infection. Infection due to Streptococcus pneumoniae cannot be ruled out since the antigen present in the sample may be below the detection limit of the test. 07/29/18 18:11 Urine - Clean Catch Urine Legionella Antigen - Final Presumptive negative for Legionella pneumophila serogroup 1 antigen in urine, suggesting no recent or recurrent infection. Infection due to Legionella cannot be ruled out since other serogroups and species may cause disease, antigen may not be present in urine in early infection, and the level of antigen present in the urine may be below the detection limit of the test. 07/29/18 15:07 Nasal Wash Influenza Types A,B Antigen - Final Negative for FLU A and B antigen Infection due to influenza A or B cannot be ruled out since the antigen present in the sample may be below the detection limit of the test. Lab - Chemistry Results 07/30/18 07/31/18 15:54 05:08 Sodium 138 138 Potassium 3.8 4.0 Chloride 103 103 Carbon Dioxide 25.3 27.2 Anion Gap 10 8 BUN 4 L 3 L Creatinine 0.71 0.68 Estimated GFR 87 L Greater than 89 Random Glucose 110 H 101 Calcium 8.4 L 8.3 L Magnesium 2.1 Total Bilirubin 0.3 Direct Bilirubin 0.1 Indirect Bilirubin 0.2 AST 22 ALT 28 Alkaline Phosphatase 162 H Total Protein 8.1 D Albumin 2.1 L Imaging: ITS Impressions Chest X-Ray 07/29/18 13:55 CONCLUSION: Minimal linear density left lower lobe likely subsegmental atelectasis although minimal infiltrate cannot be excluded. Hand X-Ray 07/29/18 14:04 CONCLUSION: Soft tissue swelling without evidence of radiopaque foreign body. Upper Extremity Ultrasound 07/30/18 00:00 CONCLUSION: 1. Pathological lymph nodes. Abdomen/Pelvis CT 07/31/18 00:00 CONCLUSION: 1. Mild, nonspecific hepatosplenomegaly. 2. No focal inflammatory changes or other acute abnormalities are demonstrated. There is no lymphadenopathy within the abdomen or pelvis. 3. 6 mm right lung base nodule. Six-month follow-up noncontrast chest CT is recommended. Otherwise, there is mild right basilar atelectasis. Chest CTA 07/31/18 00:00 CONCLUSION: 1. No pulmonary embolus. 2. Trace atelectasis of both lung bases. 3. Nonspecific right axillary lymphadenopathy. There is no mediastinal or hilar lymphadenopathy. Physical Exam: GENERAL: awake and alert, not in respiratory distress. SKIN: Warm and dry. No generalized rash HEAD: Atraumatic. Normocephalic. No temporal wasting, or tenderness. EYES: [place] conjunctiva. No petechia or hemorrhage. No scleral icterus. No injection or drainage. EARS, NOSE AND THROAT: Nose without bleeding or purulent nasal discharge. Mucous membranes pink and moist. No oral lesions noted. NECK: Trachea midline. Supple and not tender, no meningeal signs. No lymphadenopathy CARDIOVASCULAR: Regular rate and rhythm. No murmurs, rubs or gallops heard RESPIRATORY: Clear to auscultation. Breath sounds equal bilaterally. No rales , wheezing or rhonchi ABDOMEN: Soft, non-tender, nondistended. Bowel sounds present and normoactive. No guarding. No rebound. No organomegaly. EXTREMITIES: No clubbing, cyanosis, or edema in both LE. R hand - there is a healed wound on ulnar side of her 5th MCP, light pink color, non tender. There is a improving lymphangitic streak in her upper arm, not tender now; nad the one in the forearm has resolved. R axilla - there is less swelling, and less tender LN palpated, but no discoloration of skin overlying that tender LN. Tenderness is better. NEUROLOGICAL: Non-focal PSYCHIATRIC: Normal affect, calm and cooperative. LINE: No evidence of infection Assessment and Plan - Plan Impression Fevers with lymphangitis and possible lymphadenopathy - ?CSD - ?other etiology Recent cat bite to her RIF, no evidence of finger infection currently Recommendation Patient wants to go home Give 7 days Clinda 300 TID and Cipro 750 BID Give 7 more days Zithromax 250 mg daily Needs fup with Dr Medellin to followup her LN and see if resolved, and if not further evaluation Explained plan to the patient
--- NOTE | 2018-08-01 15:20 | P.DS ---
Date of admission: 07/29/18 16:49 Primary care physician: No Primary Care Physician Attending physician on discharge: Eliezer Baird Anticipated date of discharge: 08/01/18 Brief History from admission: This is a pleasant 53 y/o Female who came to Emergency Room for evaluation of fever and right arm pain. The patient states that 2 months ago she sustained a cat bite to her right hand second finger distal tip. States that she was seen same day at [facility] and treated with oral antibiotics, she is unsure which antibiotic, states that she took all except the last 2 days. States that the wound on the distal tip of her finger took about 1 month to heal completely. States that one month ago she started having a wound to the ulnar aspect of her left hand at the base of her little finger. States that this became swollen and had purulence that drained from it, states it has improved since then however has not resolved. States that she has had pain and mild swelling in the right axilla for the past 2 weeks. States that today when she got up she is having pain radiating from her right hand up her arm into her axilla. States that she also notices she has some red streaking running up her arm today. Patient states that she has had fevers daily for the past 10 days. States that her fevers have ranged from 102 F to 104 F. States that her fevers have mostly been at night. States she did have one last night that was 103.9 F at 2 AM and she took an [place] cold and flu. She states that she has also had flulike symptoms over the past 7-10 days with slight cough, nausea, vomiting. States she was seen at an urgent care last week and had blood work which was unremarkable with the exception of a TSH of 16. Denies , she is status post tubal ligation. stable in he bedroom in Emergency room, no nausea, vomit or diarrhea. Patient update on day of discharge: Follow up on patient with fevers, RUE lymphangitis. Patient seen and examined. Patient says she feels better today. She reports mild sweating last night but denies any fevers. She denies any headache. She reports improvement in RUE pain and swelling. She denies any cough, chest pain or dyspnea. DS: Diagnosis - Discharge Diagnosis (1) Cellulitis Status: Acute (2) Acute lymphangitis Status: Acute (3) Fever Status: Acute (4) Community acquired pneumonia Status: Acute (5) Incidental lung nodule, > 3mm and < 8mm Status: Acute DS: Medications - Discharge Medications Prescriptions: azithromycin 250 mg PO Q24H #7 tab ciprofloxacin HCl 750 mg PO Q12HR 7 Days tab clindamycin HCl [Cleocin HCl] 300 mg PO Q8HR 7 Days cap guaifenesin [Mucinex] 600 mg PO BID #10 tab DS: Summary Hospital Course: Patient with right upper extremity cellulitis/lymphangitis with recurrent fevers possibly secondary to cat scratch disease. Patient had elevated sed rate of 140 and CRP of 18. X-ray of the right hand revealed soft tissue swelling but was otherwise unremarkable. Ultrasound of the right axilla revealed pathologic lymph nodes. Patient was started on IV vancomycin, clindamycin and azithromycin. Patient was also thought to have suspected community-acquired pneumonia. Patient was seen in consultation by infectious disease who continued the patient on clindamycin and erythromycin ciprofloxacin as well. [place] screen was negative. Bartonella titers were ordered by ID and were pending at the time of discharge. Patient had a elevated d-dimer 3.75 and follow-up CTA was negative for PE. CT the abdomen and pelvis was obtained which revealed an incidental finding of 6 mm right lung nodule. Patient was instructed follow-up with repeat imaging in 6 months. Patient improved clinically. Patient reached maximal benefit from her hospitalization. Patient was cleared for discharge from infectious disease standpoint with mandatory follow-up with Dr. Medellin as outpatient to evaluate for resolution of her right axillary lymph node. - Time Spent with Patient Total time spent providing and/or coordinating discharge services: Greater than 30 minutes Exam Vital signs: Vital Signs 07/31/18 16:00 07/31/18 20:00 08/01/18 00:00 Temperature 98.9 F 99.9 F H 97.7 F Pulse Rate 89 91 H 77 Respiratory Rate 18 20 20 Blood Pressure 134/85 142/77 H 114/72 Pulse Oximetry 99 97 08/01/18 04:00 08/01/18 08:00 08/01/18 08:05 Temperature 98 F 97.7 F Pulse Rate 84 82 Respiratory Rate 20 18 Blood Pressure 121/64 106/52 L Pulse Oximetry 96 95 99 08/01/18 12:00 Temperature 97.8 F Pulse Rate 86 Respiratory Rate 18 Blood Pressure 97/57 L Pulse Oximetry 100 Intake & Output 07/31/18 08/01/18 08/01/18 18:59 06:59 18:59 Intake Total 4800 / 4800 50 / 50 Output Total 5 / 5 Balance 4800 / 4800 -5 / -5 50 / 50 Weight 79.3 kg Intake: IV 2300 / 2300 50 / 50 NS Inj 1,000 ML @ 42 mls/hr IV. 1999 CONT .[id number] PATRICIA Rx#:[id number] Azithromycin Inj 500 MG In NS 250 / 250 Inj 250 ML @ 250 mls/hr IV.SIG Q24H PATRICIA Rx#:[id number] Cleocin 600 mg/NS Premix 600 mg 50 / 50 50 / 50 In 50 ml @ 100 mls/hr IV.SIG Q8H PATRICIA Rx#:[id number] Oral 2500 / 2500 Output: Urine 5 / 5 Other: # Voids 3 Date of Last Bowel Movement 07/31/18 08/01/18 08/01/18 # Bowel Movements 2 1 Narrative: GENERAL: WDWN middle aged female, INAD. Awake and alert. Sitting up in bed. Appears comfortable. SKIN: Warm and dry. No generalized rash. HEENT: Atraumatic. Normocephalic. Pupils equal and round. No scleral icterus. No injection or drainage. No nasal bleeding or discharge. Mucous membranes pink and moist. NECK: Trachea midline. CARDIOVASCULAR: Regular rate and rhythm. No murmurs auscultated. RESPIRATORY: No accessory muscle use. Clear to auscultation. Breath sounds equal bilaterally. GASTROINTESTINAL: Abdomen soft, non-tender, nondistended. +BS. MUSCULOSKELETAL: Extremities without clubbing or cyanosis. +healed wound on ulnar aspect of right hand. NTTP. +mild edema and tenderness over right forearm, improving. +swelling noted in right axilla with tenderness to palpation, continues to improve, +tender palpable lymph node, less tender on todays exam. No appreciable erythema or streaking. NEUROLOGICAL: Awake and alert. No obvious cranial nerve deficits. Motor grossly within normal limits. Able to move all extremities spontaneously. Normal speech. PSYCHIATRIC: Appropriate mood and affect; insight and judgment normal. Results Procedures completed during hospitalization: None Labs on day of discharge: Preliminary micro results at discharge 07/29/18 14:25 Aerobic Blood Culture - Preliminary Blood - Peripheral No growth in 3 days Anaerobic Blood Culture - Preliminary No growth in 3 days 07/29/18 14:35 Aerobic Blood Culture - Preliminary Blood - Peripheral No growth in 3 days Anaerobic Blood Culture - Preliminary No growth in 3 days - Impressions ITS Impressions Chest X-Ray 07/29/18 13:55 CONCLUSION: Minimal linear density left lower lobe likely subsegmental atelectasis although minimal infiltrate cannot be excluded. Hand X-Ray 07/29/18 14:04 CONCLUSION: Soft tissue swelling without evidence of radiopaque foreign body. Upper Extremity Ultrasound 07/30/18 00:00 CONCLUSION: 1. Pathological lymph nodes. Abdomen/Pelvis CT 07/31/18 00:00 CONCLUSION: 1. Mild, nonspecific hepatosplenomegaly. 2. No focal inflammatory changes or other acute abnormalities are demonstrated. There is no lymphadenopathy within the abdomen or pelvis. 3. 6 mm right lung base nodule. Six-month follow-up noncontrast chest CT is recommended. Otherwise, there is mild right basilar atelectasis. Chest CTA 07/31/18 00:00 CONCLUSION: 1. No pulmonary embolus. 2. Trace atelectasis of both lung bases. 3. Nonspecific right axillary lymphadenopathy. There is no mediastinal or hilar lymphadenopathy. Discharge Plan - Discharge Disposition Patient Disposition: 01 Discharge Home - Discharge Condition Condition: Stable - Discharge Order Discharge Orders: Discharge Order (Routine); Ordered 08/01/18 Ordered By: Geneva Quintero - Discharge Details Anticipated Discharge Date: 08/01/18 Discharge Comment: Discharge pending infectious disease clearance - Physicians Team Primary Care Provider: Primary Care Christine,Yaz Attending Provider: Eliezer Baird Other Providers: Naya Trevino MD
[2018-08-01] MEDS: Azithromycin Inj 500 MG in Sodium Chlor 0.9% Inj 250 ML IV.SIG SCH (15:30)
[2018-08-02] MEDS ORDERED: Azithromycin 250 MG Tablet PO SCH (16:00)
[2018-08-02 16:13] LABS: Bartonella Henselae IgG >=1:1024 titer (<1:128); Bartonella Henselae IgM >=1:20 titer (<1:20); Bartonella Quintana IgG <1:128 titer (<1:128); Bartonella Quintana IgM <1:20 titer (<1:20)
== END 2018-08-01 16:35 | disposition home or self-care (01) ==
LOC: NEPD 12:25 → NEDA 16:49 → N05 17:50
PROVIDERS: ADMIT Hospitalist; ATTEND Hospitalist